=== PATIENT | male | born 1950 | race Caucasian/White ===

== ENCOUNTER 2017-11-24 13:27 | Inpatient (IN) | payer MEDICARE ==
--- NOTE | 2017-11-24 16:34 | RAD ---
HISTORY: Ataxia COMPARISONS: CT dated May 09, 2017 VIEWS: 1: frontal portable view of the chest at 4:10 PM FINDINGS: LINES AND TUBES: None. CARDIOMEDIASTINAL SILHOUETTE: The cardiomediastinal silhouette is normal for portable technique. PLEURA: The costophrenic angles are sharp. No pleural abnormalities are noted. LUNG PARENCHYMA: There is confluent alveolar opacification the left perihilar lung. There is hyperinflation. ABDOMEN: The upper abdomen is clear. There is no subphrenic gas. BONES AND SOFT TISSUES: No bone or soft tissue abnormalities are noted. IMPRESSION: LEFT PERIHILAR CONSOLIDATION. RECOMMEND FOLLOW-UP UNTIL RESOLUTION TO EXCLUDE UNDERLYING PULMONARY PARENCHYMAL PATHOLOGY.
--- NOTE | 2017-11-24 16:37 | RAD ---
HISTORY: Ataxia COMPARISONS: None TECHNIQUE: Multiple contiguous axial CT scans were obtained of the head without intravenous contrast. FINDINGS: HEMORRHAGE/INFARCT: There is no hemorrhage or acute infarct. MASSES/SHIFT: There is no mass or shift. EXTRA-AXIAL SPACES: There are no extra-axial fluid collections. SULCI AND VENTRICLES: The sulci and ventricles are normal in size and position for the patient's stated age. CEREBRUM: There are no focal parenchymal abnormalities. BRAINSTEM: There are no focal parenchymal abnormalities. CEREBELLUM: There are no focal parenchymal abnormalities. VESSELS: The vessels are grossly normal. PARANASAL SINUSES: The paranasal sinuses are clear. ORBITS: The orbits are unremarkable. BONES AND SOFT TISSUE: No bone or soft tissue abnormalities are noted. OTHER: None IMPRESSION: NO ACUTE INTRACRANIAL PATHOLOGY.
[2017-11-24 17:13] LABS: ABS Basophils 0 10^3/ul (0-0.2); ABS Eosinophils 0 10^3/ul (0-0.6); ABS Lymphocytes 2.6 10^3/ul (1.0-4.8); ABS Monocytes 0.8 10^3/ul (0-0.8); ABS Neutrophils 7.5 10^3/ul (1.5-7.7); ABS Nucleated RBC 0 10^3/ul; Eosinophil % 0.3 % (0-6); Hematocrit 43 % (42-52); Hemoglobin 14.9 g/dl (14.0-18.0); Lymphocyte % 23.6 % (25-47); Mean Corpuscular HGB Conc 34 g/dl (31-36); Mean Corpuscular Hemoglobin 33 pg (27-31); Mean Corpuscular Volume 95 fL (80-94); Mean Platelet Volume 10 um3 (7.4-10.4); Nucleated Red Blood Cells % 0; Platelet Count 226 10^3/ul (150-450); Red Blood Count 4.55 10^6/ul (4.0-5.4); Red Cell Distribution Width 13 % (10.5-15); White Blood Count 10.9 10^3/ul (3.5-10.8)
[2017-11-24 17:26] LABS: EGFR Non-African American 60.4 (>60)
[2017-11-24 17:37] LABS: INR 1.03 (0.77-1.02)
[2017-11-24] MEDS ORDERED: Thiamine IV* 100 MG/ML 2 ML VIAL IM ONE (19:21)
[2017-11-24] MEDS ORDERED: Cyanocobalamin INJ * 1,000 MCG/ML VIAL 1 ML VIAL IM ONE (19:21)
[2017-11-24] MEDS ORDERED: LORazepam INJ* 2 MG/ML 1 ML VIAL IV ONE (20:16)
[2017-11-24] MEDS ORDERED: CMCS:Melatonin (NF) 3 MG TAB PO PRN (23:15)
[2017-11-24] MEDS ORDERED: Mouth Piece, Nicotine* 1 EACH CARTRIDGE INH PRN (23:15)
[2017-11-24] MEDS ORDERED: Nicotine Inhaler* 10 MG AMP INH PRN (23:15)
[2017-11-24] MEDS ORDERED: Albuterol 2.5 MG/3 ML NEB.SOL* (0.083%) INH PRN (23:15)
--- NOTE | 2017-11-25 00:16 | CONS ---
NEUROLOGY CONSULTATION: DATE OF CONSULT: 11/24/17 LOCATION: He is in the emergency room bed 15 to be admitted. REFERRING PROVIDER: Miguel Sultana MD PRIMARY CARE PROVIDER: Hector Mills MD CHIEF COMPLAINT: Weakness. HISTORY OF PRESENT ILLNESS: David Rowe is a 67-year-old man who said that about , he had difficulty walking. He is not a very good historian with poor attention and concentration, and he may have had problems with numbness or difficulty walking prior to that, but there was a pretty abrupt change this past week. He found that by he was using 2 canes to walk. Prior to that, he may have had some numbness in his legs and feet, but he did not feel that his walking was much impaired if at all. He has; however, been getting weak and has lost over 35 pounds in the last 6 months. He says he had an extensive evaluation, but there is not a lot in our EMR. He did have a CT of the abdomen and pelvis on 09/15/17, which did not reveal anything revealing. There was some atheromatous disease and mild ectasia of the infrarenal abdominal aorta. He had a low dose lung CT on 05/09/17 interpreted as nodules with very low likelihood of becoming a clinically active cancer due to size and lack of growth. Apparently, this was an annual screening study. He had a CBC in the records from 06/26/17 notable for normal white blood cell count, normal hemoglobin at 15.5, platelet count 211,000. MCV was elevated at 98 at that point in time. He has not noticed any numbness or weakness in his arms. In addressing his somewhat inconsistent difficulty giving a history, his daughter admits that he has not been as sharp mentally as he has been. His is with him, but she has not lived with him for quite a while, but she notes he has declined and losing a lot of weight, but he used to be very intelligent and sharp and that that has changed. He denies double vision. He has sacral pain, but denies any other back pain. He reports chronic abdominal problems, which he attributes to diverticular disease, although that is not established in the records that I have available. He says he used to be very careful of what he eats or he starts regurgitating. He makes reference to having to "clean himself from below." He does not use enemas. His said he has become a recluse because of his bowel concerns and rarely goes out. He generally avoids medical care. MEDICATIONS: He does not take any medications at home other than low dose aspirin. ALLERGIES: He does not have any drug allergies. SOCIAL HISTORY: He is a heavy smoker and has been smoking for many decades. He is an alcoholic in remission and has not had alcohol in about 12 to 13 years. ROS: Weight loss as noted above. When asked about difficulty breathing, he says he just has difficulty when he is eating with a sense of pressure and regurgitation in his chest. He denies any history of heart problems. He has not had any faints or falls. There is no history of seizures, head trauma, or stroke. No history of endocrine, rheumatologic, psychiatric disease although his daughter says he is depressed. PHYSICAL EXAMINATION: On examination, he is somewhat cachectic looking gentleman with temporalis wasting. He has a non-painful rubbery nodule in the left lower paravertebral level and one of the left to the umbilicus. Lungs revealed rhonchorous sounds in the left base. Neck is supple. Carotid pulses are intact and there are no cervical bruits. Heart is in an irregular rhythm and is in atrial fibrillation on the monitor at a rate of about 130 to 140. Temperature 97.7 orally, blood pressure 110/80. Skin is warm and dry. He has tobacco stains on his fingers and onchonychia in his feet. Neurologically, pupils react equally from 3 to 2 mm symmetrically. Visual baxter are full to confrontation. Funduscopic exam reveals sharp discs bilaterally. There is no ptosis. Facial musculature is intact and symmetric. Facial sensation to pin and light touch is symmetric. Hearing is intact and neck strength seems normal. Motor exam reveals mild weakness of the left deltoid in the 4+ range. He has otherwise normal strength in the upper extremities proximally and distally. There is no spasticity in the arms. In the lower extremities, there is a slight increase in tone at both knees. He has barely antigravity strength of hip flexors bilaterally. He does have quadriceps strength bilaterally in the grade 4 range. He has mild ankle dorsiflexor weakness, worse in the right than the left. Sensory exam is normal for absent vibratory sense in the toes and ankles. He has diminished vibration all the way to the knees. Proprioception is absent in the great toes bilaterally. Vibration is a little bit better in the left leg than the right. There is diminished pin discrimination at least to the hips and there seems to be at sensory level in the intrascapular area bilaterally at about T3. Light touch is present in the fingers, but absent in the feet. Reflexes are present in the upper extremities and brisker in the right arm than the left. He has Og's reflexes in both fingers. He has very brisk knee reflexes, more in the right than the left. He has trace right ankle reflex and absent left ankle reflex. Plantar responses are extensor bilaterally. Finger- to-nose maneuver is normal bilaterally. He is awake and alert, but has poor attention and concentration. Language is fluent, but he loses his train of thought. Memory seems somewhat compromised, but he is able to provide a reasonable history. DIAGNOSTIC STUDIES/LAB DATA: Laboratory data includes a chest x-ray at this admission interpreted as showing left perihilar consolidation. EKG shows atrial fibrillation. Brain CT is reviewed and shows some atrophy, but is otherwise a normal brain CT. I reviewed the images and I agree. Other imaging from earlier in the year as described above. Other laboratory data notable for a CBC with a borderline elevated white blood cell count 10.9, elevated MCV at 95, platelet count normal at 226,000. Coag is notable for borderline elevated INR at 1.03. Chemistry is notable for an elevated carbon dioxide at 33, BUN 34, creatinine 1.2. Glucose, calcium, and magnesium are within normal limits. Liver enzymes and alkaline phosphatase are within normal limits. BNP is elevated at 525 and total protein is low at 6.3. TSH normal at 1.92. IMPRESSION: Impression is that of a possible spinal cord compression in a patient who has lost some amount of weight and is a chronic smoker, worrisome for a metastatic spinal cord compression. I think that the first order of business is to obtain an MRI of the thoracic and cervical spine with and without contrast if his renal function is adequate to handle it. Recommended adding a vitamin B12 level and thiamine level to his blood work and giving him 100 mg of thiamine IM and 1000 mcg of vitamin B12. He is in atrial fibrillation and Dr. Sultana will be addressing that aspect of his illness. There is no evidence currently of a stroke either by history or physical. In addition to spinal cord features of his exam, he also has features suggestive of a peripheral neuropathy and I have added a serum protein electrophoresis, Lyme screen. Further recommendations depend upon his imaging and other diagnostic studies. I have discussed my impression with Mr. Rowe, his ex-, and his daughter and that I believe he is having problems with the spinal cord and it may be metabolic or nutritional, but could be structural and hence the recommendations described above. TIME SPENT: Over 60 minutes was spent in direct ER care and discussion of the management of the patient with the healthcare team. [id number]/CPS #: [id number] MTDD
[2017-11-25] MEDS: NS 0.9% 1000 ML* 1,000 ML IV SCH ×3 (01:09→21:41)
[2017-11-25] MEDS ORDERED: Diltiazem DRIP* 100 MG/100 ML ADDV.BAG IVPB ONE (03:36)
[2017-11-25] MEDS ORDERED: Diltiazem IV* 5 MG/ML 5 ML VIAL (for loading dose/IV Push) (25 MG) IV SLOW PU ONE (03:36)
[2017-11-25] MEDS ORDERED: Diltiazem IV* 5 MG/ML 5 ML VIAL (for loading dose/IV Push) (25 MG) ONE (03:44)
[2017-11-25 04:15] LABS: ABS Basophils 0 10^3/ul (0-0.2); ABS Eosinophils 0 10^3/ul (0-0.6); ABS Lymphocytes 1.9 10^3/ul (1.0-4.8); ABS Monocytes 0.7 10^3/ul (0-0.8); ABS Neutrophils 9.3 10^3/ul (1.5-7.7); ABS Nucleated RBC 0 10^3/ul; Eosinophil % 0.3 % (0-6); Hematocrit 41 % (42-52); Hemoglobin 13.9 g/dl (14.0-18.0); Lymphocyte % 15.9 % (25-47); Mean Corpuscular HGB Conc 34 g/dl (31-36); Mean Corpuscular Hemoglobin 32 pg (27-31); Mean Corpuscular Volume 94 fL (80-94); Mean Platelet Volume 10 um3 (7.4-10.4); Nucleated Red Blood Cells % 0; Platelet Count 213 10^3/ul (150-450); Red Blood Count 4.34 10^6/ul (4.0-5.4); Red Cell Distribution Width 13 % (10.5-15)
[2017-11-25 04:26] LABS: EGFR Non-African American 68.2 (>60)
[2017-11-25] MEDS ORDERED: Diltiazem IV VIAL* 125 MG in NS 0.9% 100 ML* 100 ML IV ONE (04:30)
[2017-11-25] MEDS: Omeprazole CAP* 20 MG PO SCH (05:27)
[2017-11-25 05:56] LABS: Urine Appearance Clear; Urine Blood Negative (Negative); Urine Color Yellow; Urine Ketones Trace (Negative); Urine Protein Negative (Negative); Urine Specific Gravity 1.014 (1.010-1.030); Urine Urobilinogen Negative (Negative)
[2017-11-25] MEDS ORDERED: Heparin VIAL(*) 5000 UNITS/ML VIAL (FIVE THOUSAND) SUBCUT SCH (06:00)
[2017-11-25] MEDS: Aspirin EC Low Dose* 81 MG TAB.EC PO SCH (08:18)
[2017-11-25] MEDS: Docusate CAP* 100 MG PO SCH ×2 (08:18→21:37)
[2017-11-25] MEDS: Mometasone/Formoter 200/5 MDI INH SCH ×2 (08:42→19:41)
--- NOTE | 2017-11-25 08:54 | HP ---
H&P (Free Text) History and Physical: PCP: Faisal Mills MD Date/Time: 11/24/2017 2310 CC: BLE weakness HPI: Mr Rowe is a 67YO male HX emphysema currently smoking who reports awakening Friday AM without feeling in his BLE, L from hip to toes and R from knee to toes in a stocking distribution. He also reports recent development of a tender nodule in his epigastrum & low back along with a 30# weight loss over the past month. He has had chronic cough and mild SOB for the past year, but denies F/C, sweats, N/V, diarrhea, black or bloody stools, hemoptysis, or other issues. Susan Zaragoza MD neurology consulted in ED and held high suspicion of neoplastic process with cervical spine metastasis. 2 attempts to perform cervical MRI were unsuccessful 2nd patient intolerance. Plan to admit for Dr Zaragoza to arrange MRI under anesthesia in AM. CXR with L haley- hilar infiltrate ? mass and elevated CEA. PMedHx emphysema diverticulosis HX Lyme disease tobacco use disorder Ambulatory Orders Aspirin EC Low Dose* [Ecotrin EC Low Dose 81 MG*] 81 mg PO QAM 11/24/17 Allergies No Known Allergies Allergy (Verified 11/24/17 15:38) PSurgHx vocal polyp excision SocHx: 1PPD cigarettes, 13 years sober, denies recreational drugs; , lives alone; full code status FamHx: Mother: CHF, HTN; Father: CAD/CVA; sister: lung CA ROS: as above, otherwise reviewed and all were negative vitals: Vital Signs Temp 36.4 C 11/25/17 07:50 Pulse 156 11/25/17 03:32 Resp 18 11/25/17 03:32 BP 136/94 11/25/17 07:41 Pulse Ox 96 11/25/17 03:32 Intake & Output 11/24/17 11/24/17 11/25/17 11:59 23:59 11:59 Intake Total 0 Output Total 500 Balance -500 Weight 65.771 kg 58.786 kg Intake: Oral 0 Output: Urine 500 Other: # Voids 1 Constitutional: NAD, normally developed, thin white male HEENM: atraumatic; sclera/conjunctiva: anicteric/clear; hearing: clinically intact; oropharynx: clear, mucosa moist Neck: soft tissue: no nuchal rigidity; thyroid: non-tender Pulmonary: clear to auscultation bilaterally, good aeration, no accessory muscle use CV: RR/RR, normal S1S2, no carotid bruit, no jugular venous distention, 2+ B DP/ PT, no edema Abdominal: soft, non-distended, non-tender, no rebound/guarding/rigidity, normoactive bowel sounds, no hepatosplenomegaly or masses, no costovertebral angle tenderness Musculoskeletal: general: grossly intact Neurological: deferred to Susan Zaragoza MD neurology who evaluated patient in ED Integumental: mobile firm subcutaneous nodule in epigastrum & lumbar spine Psychiatric orientation: AA&O to PPS affect: calm mood: cooperative eye contact: fair content: reliable responses: timely insight: fair Testing: Lab Results 11/24/17 11/24/17 11/24/17 Range/Units 16:42 16:42 16:42 WBC 10.9 H (3.5-10.8) 10^3/ul RBC 4.55 (4.0-5.4) 10^6/ul Hgb 14.9 (14.0-18.0) g/dl Hct 43 (42-52) % MCV 95 H (80-94) fL MCH 33 H (27-31) pg MCHC 34 (31-36) g/dl RDW 13 (10.5-15) % Plt Count 226 (150-450) 10^3/ul MPV 10 (7.4-10.4) um3 Neut % (Auto) 68.7 (38-83) % Lymph % (Auto) 23.6 L (25-47) % [place] % (Auto) 7.1 (1-9) % Eos % (Auto) 0.3 (0-6) % Baso % (Auto) 0.3 (0-2) % Absolute Neuts (auto) 7.5 (1.5-7.7) 10^3/ul Absolute Lymphs (auto) 2.6 (1.0-4.8) 10^3/ul Absolute Monos (auto) 0.8 (0-0.8) 10^3/ul Absolute Eos (auto) 0 (0-0.6) 10^3/ul Absolute Basos (auto) 0 (0-0.2) 10^3/ul Absolute Nucleated RBC 0 10^3/ul Nucleated RBC % 0 ESR 7 (0-40) mm/Hr INR (Anticoag Therapy) 1.03 H (0.77-1.02) APTT 29.9 (26.0-36.3) seconds Sodium 134 (133-145) mmol/L Potassium 4.0 (3.5-5.0) mmol/L Chloride 96 L (101-111) mmol/L Carbon Dioxide 33 H (22-32) mmol/L Anion Gap 5 (2-11) mmol/L BUN 34 H (6-24) mg/dL Creatinine 1.20 H (0.67-1.17) mg/dL Est GFR ( Amer) 77.7 (>60) Est GFR (Non-Af Amer) 60.4 (>60) BUN/Creatinine Ratio 28.3 H (8-20) Glucose 88 (70-100) mg/dL Lactic Acid (0.5-2.0) mmol/L Calcium 8.8 (8.6-10.3) mg/dL Magnesium 2.5 (1.9-2.7) mg/dL Total Bilirubin 0.60 (0.2-1.0) mg/dL AST 39 (13-39) U/L ALT 38 (7-52) U/L Alkaline Phosphatase 79 (34-104) U/L Troponin I 0.03 (<0.04) ng/mL B-Natriuretic Peptide ( - 100) pg/mL Total Protein 6.3 L (6.4-8.9) g/dL Albumin 3.6 (3.2-5.2) g/dL Globulin 2.7 (2-4) g/dL Albumin/Globulin Ratio 1.3 (1-3) Carcinoembryonic Ag (0.1-5.0) ng/mL Vitamin B12 382 (180-914) pg/mL TSH 1.92 (0.34-5.60) mcIU/mL Urine Color Urine Appearance Urine pH (5-9) Ur Specific [place] (1.010-1.030) Urine Protein (Negative) Urine Ketones (Negative) Urine Blood (Negative) Urine Nitrate (Negative) Urine Bilirubin (Negative) Urine Urobilinogen (Negative) Ur Leukocyte Esterase (Negative) Urine Glucose (Negative) 0111/24/17 11/24/17 Range/Units 16:42 16:42 19:40 WBC (3.5-10.8) 10^3/ul RBC (4.0-5.4) 10^6/ul Hgb (14.0-18.0) g/dl Hct (42-52) % MCV (80-94) fL MCH (27-31) pg MCHC (31-36) g/dl RDW (10.5-15) % Plt Count (150-450) 10^3/ul MPV (7.4-10.4) um3 Neut % (Auto) (38-83) % Lymph % (Auto) (25-47) % [place] % (Auto) (1-9) % Eos % (Auto) (0-6) % Baso % (Auto) (0-2) % Absolute Neuts (auto) (1.5-7.7) 10^3/ul Absolute Lymphs (auto) (1.0-4.8) 10^3/ul Absolute Monos (auto) (0-0.8) 10^3/ul Absolute Eos (auto) (0-0.6) 10^3/ul Absolute Basos (auto) (0-0.2) 10^3/ul Absolute Nucleated RBC 10^3/ul Nucleated RBC % ESR (0-40) mm/Hr INR (Anticoag Therapy) (0.77-1.02) APTT (26.0-36.3) seconds Sodium (133-145) mmol/L Potassium (3.5-5.0) mmol/L Chloride (101-111) mmol/L Carbon Dioxide (22-32) mmol/L Anion Gap (2-11) mmol/L BUN (6-24) mg/dL Creatinine (0.67-1.17) mg/dL Est GFR ( Amer) (>60) Est GFR (Non-Af Amer) (>60) BUN/Creatinine Ratio (8-20) Glucose (70-100) mg/dL Lactic Acid 2.0 (0.5-2.0) mmol/L Calcium (8.6-10.3) mg/dL Magnesium (1.9-2.7) mg/dL Total Bilirubin (0.2-1.0) mg/dL AST (13-39) U/L ALT (7-52) U/L Alkaline Phosphatase (34-104) U/L Troponin I (<0.04) ng/mL B-Natriuretic Peptide 525 H ( - 100) pg/mL Total Protein (6.4-8.9) g/dL Albumin (3.2-5.2) g/dL Globulin (2-4) g/dL Albumin/Globulin Ratio (1-3) Carcinoembryonic Ag 22.5 H (0.1-5.0) ng/mL Vitamin B12 (180-914) pg/mL TSH (0.34-5.60) mcIU/mL Urine Color Urine Appearance Urine pH (5-9) Ur Specific [place] (1.010-1.030) Urine Protein (Negative) Urine Ketones (Negative) Urine Blood (Negative) Urine Nitrate (Negative) Urine Bilirubin (Negative) Urine Urobilinogen (Negative) Ur Leukocyte Esterase (Negative) Urine Glucose (Negative) 11/25/17 11/25/17 11/25/17 Range/Units 04:00 04:00 05:34 WBC 12.0 H (3.5-10.8) 10^3/ul RBC 4.34 (4.0-5.4) 10^6/ul Hgb 13.9 L (14.0-18.0) g/dl Hct 41 L (42-52) % MCV 94 (80-94) fL MCH 32 H (27-31) pg MCHC 34 (31-36) g/dl RDW 13 (10.5-15) % Plt Count 213 (150-450) 10^3/ul MPV 10 (7.4-10.4) um3 Neut % (Auto) 78.0 (38-83) % Lymph % (Auto) 15.9 L (25-47) % [place] % (Auto) 5.5 (1-9) % Eos % (Auto) 0.3 (0-6) % Baso % (Auto) 0.3 (0-2) % Absolute Neuts (auto) 9.3 H (1.5-7.7) 10^3/ul Absolute Lymphs (auto) 1.9 (1.0-4.8) 10^3/ul Absolute Monos (auto) 0.7 (0-0.8) 10^3/ul Absolute Eos (auto) 0 (0-0.6) 10^3/ul Absolute Basos (auto) 0 (0-0.2) 10^3/ul Absolute Nucleated RBC 0 10^3/ul Nucleated RBC % 0 ESR (0-40) mm/Hr INR (Anticoag Therapy) (0.77-1.02) APTT (26.0-36.3) seconds Sodium 131 L (133-145) mmol/L Potassium 3.7 (3.5-5.0) mmol/L Chloride 97 L (101-111) mmol/L Carbon Dioxide 25 (22-32) mmol/L Anion Gap 9 (2-11) mmol/L BUN 37 H (6-24) mg/dL Creatinine 1.08 (0.67-1.17) mg/dL Est GFR ( Amer) 87.7 (>60) Est GFR (Non-Af Amer) 68.2 (>60) BUN/Creatinine Ratio 34.3 H (8-20) Glucose 110 H (70-100) mg/dL Lactic Acid (0.5-2.0) mmol/L Calcium 8.7 (8.6-10.3) mg/dL Magnesium (1.9-2.7) mg/dL Total Bilirubin (0.2-1.0) mg/dL AST (13-39) U/L ALT (7-52) U/L Alkaline Phosphatase (34-104) U/L Troponin I (<0.04) ng/mL B-Natriuretic Peptide ( - 100) pg/mL Total Protein (6.4-8.9) g/dL Albumin (3.2-5.2) g/dL Globulin (2-4) g/dL Albumin/Globulin Ratio (1-3) Carcinoembryonic Ag (0.1-5.0) ng/mL Vitamin B12 (180-914) pg/mL TSH (0.34-5.60) mcIU/mL Urine Color Yellow Urine Appearance Clear Urine pH 7.0 (5-9) Ur Specific [place] 1.014 (1.010-1.030) Urine Protein Negative (Negative) Urine Ketones Trace H (Negative) Urine Blood Negative (Negative) Urine Nitrate Negative (Negative) Urine Bilirubin Negative (Negative) Urine Urobilinogen Negative (Negative) Ur Leukocyte Esterase Negative (Negative) Urine Glucose Negative (Negative) ECG, personally reviewed: AFIB RVR rate 125, no ischemia, biphasic T-waves lateral leads CXR, personally reviewed: IMPRESSION: LEFT PERIHILAR CONSOLIDATION. RECOMMEND FOLLOW-UP UNTIL RESOLUTION TO EXCLUDE UNDERLYING PULMONARY PARENCHYMAL PATHOLOGY. CT brain WO, personally reviewed: IMPRESSION: NO ACUTE INTRACRANIAL PATHOLOGY. Impression: 67M presenting with sudden onset BLE weakness & L perihilar pneumonia ? mass & elevated CEA suspicious for neoplastic process w/ post- obstructive pneumonia and cervical metastasis DIAGNOSIS & PLAN Primary post-obstructive pneumonia with suspected cervical metastasis : IV piperacillin/tazobactam : IVFs : Susan Zaragoza MD neurology consulted, will follow : supplemental oxygen : blood & sputum CXs : supportive care Secondary emphysema : albuterol nebs : mometasone/formoterol Admission Rational: inpatient for cancer work up with potential spinal metastasis; inappropriate for outpatient setting DVTp: SCDs & heparin Code Status: full HCP: daughter
[2017-11-25] MEDS ORDERED: Piperacillin/Tazobac ADVAN(*) 3.375 GM in NS 0.9% 100 ML* 100 ML IVPB SCH (10:00)
[2017-11-25] MEDS ORDERED: Potassium Chlor TAB* 20 MEQ TAB.ER PO ONE (10:06)
[2017-11-25] MEDS ORDERED: Metoprolol Tartrate IV* 1 MG/ML 5 ML VIAL IV ONE (10:06)
[2017-11-25] MEDS: Piperacillin/Tazobactam 13.5 GM IV 24 hour continuous infusion IVPB SCH ×2 (10:47)
[2017-11-25] MEDS: Enoxaparin(*) 60 MG/0.6 ML SYR SUBCUT SCH ×2 (12:57→23:35)
[2017-11-25] MEDS ORDERED: Dexamethasone IV* 8 MG in NS 0.9% 50 ML* 50 ML IVPB SCH (15:00)
[2017-11-25] MEDS ORDERED: Iohexol 300* (CONTRAST) 10 ML SDV IV ONE (15:25)
[2017-11-25] MEDS: Dexamethasone IV* 4 MG/ML 1 ML (4 MG) IV SLOW PU SCH ×2 (16:39→21:38)
--- NOTE | 2017-11-25 17:03 | PN ---
Subjective Date of Service: 11/25/17 Interval History: Seen multiple times throughout the day seen in conjunction with ex- at bedside Reports he has difficulty lying flat which has prevented him from completing MRI denying pain Objective Active Medications: Acetaminophen (Tylenol Tab*) 650 mg PO Q6H PRN PRN Reason: FEVER/PAIN Albuterol (Ventolin 2.5 Mg/3 Ml Neb.Dea*) 2.5 mg INH Q2H PRN PRN Reason: SOB/WHEEZING Aspirin (Aspirin Ec Low Dose*) 81 mg PO QAM [facility] Last Admin: 11/25/17 08:18 Dose: 81 mg Device (Nicotine Mouth Piece*) 1 each INH .USE WITH NICOTROL PRN PRN Reason: CRAVING Dexamethasone Sodium Phosphate (Decadron Iv*) 8 mg IV SLOW PU Q6H [facility] Last Admin: 11/25/17 16:39 Dose: 8 mg Docusate Sodium (Colace Cap*) 200 mg PO BID [facility] Last Admin: 11/25/17 08:18 Dose: 200 mg Enoxaparin Sodium (Lovenox(*)) 60 mg SUBCUT Q12H [facility] Last Admin: 11/25/17 12:57 Dose: 60 mg Sodium Chloride (Ns 0.9% 1000 Ml*) 1,000 mls @ 125 mls/hr IV PER RATE [facility] Last Admin: 11/25/17 12:54 Dose: 125 mls/hr Diltiazem HCl 125 mg/ Sodium (Chloride) 125 mls @ 5 mls/hr IV ONCE ONE PRN Reason: Protocol Stop: 11/26/17 05:29 Last Admin: 11/25/17 04:40 Dose: 5 mls/hr Piperacillin Sod/Tazobactam (Sod 13.5 gm/ Sodium Chloride) 500 mls @ 20.833 mls /hr IVPB Q24H [facility] Last Admin: 11/25/17 10:47 Dose: 20.833 mls/hr Melatonin (Melatonin (Nf)) 3 mg PO BEDTIME PRN; Protocol PRN Reason: Sleep Mometasone Furoate/Formoterol Fumar (Dulera 200/5 Mdi*) 2 puff INH BID [facility] Last Admin: 11/25/17 08:42 Dose: 2 puff Nicotine (Nicotine Inhaler*) 10 mg INH Q2H PRN PRN Reason: CRAVING Omeprazole (Prilosec Cap*) 20 mg PO DAILY@0600 SANTIAGO Last Admin: 11/25/17 05:27 Dose: 20 mg Ondansetron HCl (Zofran Inj*) 4 mg IV Q6H PRN PRN Reason: NAUSEA Vital Signs - 8 hr 11/25/17 11/25/17 11/25/17 09:11 09:41 10:11 Temperature Blood Pressure 106/79 113/81 116/92 (mmHg) 11/25/17 11/25/17 11/25/17 10:41 10:45 11:09 Temperature 98.8 F Blood Pressure 98/71 107/67 (mmHg) 11/25/17 11/25/17 11/25/17 11:12 11:26 11:41 Temperature Blood Pressure 122/86 110/75 118/83 (mmHg) 11/25/17 11/25/17 11/25/17 12:11 13:04 15:03 Temperature Blood Pressure 114/76 110/92 117/81 (mmHg) 11/25/17 15:15 Temperature 97.5 F Blood Pressure (mmHg) Oxygen Devices in Use Now: None Appearance: cachectic, temporal wasting, NAD Eyes: No Scleral Icterus, PERRLA Ears/Nose/Mouth/Throat: Clear Oropharnyx Neck: NL Appearance and Movements; NL JVP, Trachea Midline Respiratory: Symmetrical Chest Expansion and Respiratory Effort, Clear to Auscultation Cardiovascular: - - IRIR Abdominal: NL Sounds; No Tenderness; No Distention, No Hepatosplenomegaly Lymphatic: No Cervical Adenopathy Neurological: Alert and Oriented x 3, - - cn2-12 intact, 4-5 strength upper extremities, 2-3/5 hip flexors Result Diagrams: 11/25/17 04:00 11/25/17 04:00 Assess/Plan/Problems-Billing Assessment: 67 yo M p/w less than a week of increasing LE weakness and numbness found with left perihilar consolidation and concern for cervical/thoracic process - Patient Problems (1) Weakness Comment: concern for metastatic disease to cervical spine with resultant stenosis unable to tolerate MRI Plan on MRI C and T spine tomorrow evening under anesthesia Start dexamethasone 8 mg q6hrs (2) Tumor cells, uncertain whether benign or malignant Comment: Consolidation in lung without other evidence of inflammation or infection (nominal procalcitonin and ESR) Normal low dose CT in April but will repeat CT w/contrast of lung now to evaluate further CEA elevation of uncertain significance (3) Atrial fibrillation Comment: new onset lovenox BID cardizem gtt transition to PO tomorrow after NPO status lifted (4) DVT prophylaxis Comment: full dose lovenox for afib
--- NOTE | 2017-11-25 18:13 | RAD ---
INDICATION: Left hilar mass COMPARISON: Chest x-ray November 24, 2017 TECHNIQUE: Axial source images were obtained from the thoracic inlet to the hemidiaphragms. Coronal and sagittal reconstructed images were acquired. The visualized neck to include the thyroid appear normal. Chest wall: There are no acute abnormalities of the bony thorax or chest wall. There is no supraclavicular, infraclavicular, or axillary lymphadenopathy. Lungs : There are emphysematous changes. There is a more focal interstitial process in the left upper lobe emanating from the left suprahilar region. There are multiple pulmonary parenchymal masses consistent with satellite lesions. These measure up to 2.3 x 1.4 cm. There are no additional definitive discrete pulmonary parenchymal masses. There is atelectasis in the right lung base. Cardiomediastinal structures: The heart is normal in size. There is no pericardial effusion. There is no evidence of aortic aneurysm or dissection. The pulmonary vessels appear normal. There is a necrotic appearing mass with its epicenter in the aorticopulmonary window. The mass measures approximately 6.4 x 5.0 cm in dimension. There are additional small mediastinal lymph nodes. The esophagus appears normal. Pleura : There is a small right-sided effusion. Other: Limited views the upper abdomen show a water density lesion in the right hepatic lobe measuring 2.2 cm which may represent a cyst. There is a less defined lesion of similar size also in the right hepatic lobe slightly cephalad in location to the cystic-appearing lesion which is indeterminate on the early arterial phase enhanced images. IMPRESSION: 6 0.4 CM 0.4 CM MASS IN THE AORTICOPULMONARY WINDOW WITH EXTENSION INTO THE RIGHT SUPRAHILAR REGION. MULTIPLE SATELLITE LESIONS LEFT UPPER LOBE WITH POSSIBLE LYMPHANGITIC SPREAD OF TUMOR. POSSIBLE HEPATIC LESI
--- NOTE | 2017-11-25 20:33 | PN ---
NEUROLOGY FOLLOWUP NOTE: DATE OF FOLLOWUP: 11/25/17 LOCATION: He is in room 449. HOSPITALIST: Dr. Chaney. CHIEF COMPLAINT: Weakness. INTERVAL HISTORY: Since yesterday, Mr. Rowe feels no difference in his leg weakness. He is not ab le to bear weight. He still has no problems in his arms. He was not able to get an MRI in 2 [facility] tries. When he would lay down, he would feel like a phlegm was coming up through his throat and wa s having difficulty breathing. I spoke with Dr. Sultana and ELVIS Mora yesterday and we decided to try to get an MRI of his spine under anesthesia. Additional laboratory studies obtained since yesterday in the emergency room included repeat chemistr y profile notable for sodium down a little bit to 131, BUN up a little to 37, creatinine down to 1.08 . His vitamin B12 came back normal at 382 and TSH at 1.92. CBC is normal for a bump in his white bl ood cell count to 12.0, hemoglobin is stable. Platelet count normal at 213,000. He has an elevated carcinoembryonic antigen level at 22.5. MEDICATIONS: Include: 1. Aspirin 81 mg p.o. daily. 2. Albuterol inhaler. 3. Diltiazem, which was given once for his rapid atrial fibrillation 125 mg. 4. Lovenox 60 mg subcutaneous q.12 hours. 5. Nicotine inhaler. 6. Omeprazole 20 mg p.o. daily. 7. Zofran 4 mg IV q.6 hours as needed for nausea. 8. Piperacillin and tazobactam q.24 hours. PHYSICAL EXAMINATION: On exam, he remains afebrile. Blood pressures running about 110 to 120 systol ic/70 to 90 diastolic, heart rate is between 100 to 110, irregularly irregular. Lungs revealed some rhonchi in the right lung base. Neurologically, pupils react equally from 3.5 to 2 mm. Eye movements are normal and visual baxter ar e full. Facial musculature is symmetric. Palate and tongue are normal and speech is clear. Muscle tone and strength in the upper extremities is normal. In the lower extremities, he has grade 3 hip f lexor weakness bilaterally. He has grade 4 ankle dorsiflexor weakness bilaterally, a little worse on the left than the right. He continues with bilateral Babinski signs. He is hyperreflexic at the le ft knee and has absent ankle reflexes. He is alert and oriented to person, place, and time. Memory is intact and language is fluent. 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 Unfortunately, we have not been able to obtain adequate imaging, so I am going to go ahead and start dexamethasone today. The plan is for him to get an MRI with anesthesia standby tomorrow. I will discuss with Dr. Chaney possibly g etting a CT scan of the chest and possibly having Oncology see him as well. He may need bronchoscopy , but currently he is being treated for possible postobstructive pneumonia. I will continue to victoria cage [id number]/[facility] #: [id number]
[2017-11-26] MEDS ORDERED: Diltiazem IV VIAL* 125 MG in NS 0.9% 100 ML* 100 ML IV ONE (01:30)
[2017-11-26] MEDS: Dexamethasone IV* 4 MG/ML 1 ML (4 MG) IV SLOW PU SCH ×4 (04:12→21:41)
[2017-11-26] MEDS: Omeprazole CAP* 20 MG PO SCH ×2 (05:13→05:15)
[2017-11-26] MEDS: NS 0.9% 1000 ML* 1,000 ML IV SCH ×2 (07:01→21:44)
[2017-11-26] MEDS: Docusate CAP* 100 MG PO SCH ×2 (07:48→21:39)
[2017-11-26] MEDS: Aspirin EC Low Dose* 81 MG TAB.EC PO SCH (07:48)
[2017-11-26] MEDS ORDERED: Metoprolol Tartrate IV* 1 MG/ML 5 ML VIAL IV PRN (08:45)
[2017-11-26] MEDS: Mometasone/Formoter 200/5 MDI INH SCH ×2 (08:48→22:55)
[2017-11-26] MEDS ORDERED: Diltiazem IV* 5 MG/ML 5 ML VIAL (for loading dose/IV Push) (25 MG) IV SLOW PU ONE (09:10)
[2017-11-26] MEDS: Piperacillin/Tazobactam 13.5 GM IV 24 hour continuous infusion IVPB SCH ×2 (10:56)
[2017-11-26] MEDS ORDERED: KETAMINE HCL* 50 MG/ML 10 ML VIAL ONE (14:15)
[2017-11-26] MEDS ORDERED: Midazolam* 1 MG/ML 10 ML VIAL (10 MG) ONE (14:15)
--- NOTE | 2017-11-26 14:45 | PN ---
Subjective Date of Service: 11/26/17 Interval History: Events from overnight reviewed Rapid heart rate this AM, decreased to 30s with cardizem bolus but rapid return to tachycardia Pt has remained asymptomatic Feels leg strength is stable or maybe a little better Objective Active Medications: Acetaminophen (Tylenol Tab*) 650 mg PO Q6H PRN PRN Reason: FEVER/PAIN Albuterol (Ventolin 2.5 Mg/3 Ml Neb.Dea*) 2.5 mg INH Q2H PRN PRN Reason: SOB/WHEEZING Aspirin (Aspirin Ec Low Dose*) 81 mg PO QAM [facility] Last Admin: 11/26/17 07:48 Dose: 81 mg Device (Nicotine Mouth Piece*) 1 each INH .USE WITH NICOTROL PRN PRN Reason: CRAVING Dexamethasone Sodium Phosphate (Decadron Iv*) 8 mg IV SLOW PU Q6H [facility] Last Admin: 11/26/17 10:50 Dose: 8 mg Docusate Sodium (Colace Cap*) 200 mg PO BID [facility] Last Admin: 11/26/17 07:48 Dose: 200 mg Enoxaparin Sodium (Lovenox(*)) 60 mg SUBCUT Q12H [facility] Last Admin: 11/25/17 23:35 Dose: 60 mg Sodium Chloride (Ns 0.9% 1000 Ml*) 1,000 mls @ 125 mls/hr IV PER RATE [facility] Last Admin: 11/26/17 07:01 Dose: 125 mls/hr Piperacillin Sod/Tazobactam (Sod 13.5 gm/ Sodium Chloride) 500 mls @ 20.833 mls /hr IVPB Q24H [facility] Last Admin: 11/26/17 10:56 Dose: 20.833 mls/hr Diltiazem HCl 125 mg/ Sodium (Chloride) 125 mls @ 5 mls/hr IV ONCE ONE PRN Reason: Protocol Stop: 11/27/17 02:29 Last Admin: 11/26/17 01:46 Dose: 5 mls/hr Melatonin (Melatonin (Nf)) 3 mg PO BEDTIME PRN; Protocol PRN Reason: Sleep Metoprolol Tartrate (Lopressor Iv*) 5 mg IV Q1H PRN PRN Reason: HR > 120; Last Admin: 11/26/17 08:58 Dose: 5 mg Mometasone Furoate/Formoterol Fumar (Dulera 200/5 Mdi*) 2 puff INH BID [facility] Last Admin: 11/26/17 08:48 Dose: 2 puff Nicotine (Nicotine Inhaler*) 10 mg INH Q2H PRN PRN Reason: CRAVING Omeprazole (Prilosec Cap*) 20 mg PO DAILY@0600 [facility] Last Admin: 11/26/17 05:15 Dose: Not Given Ondansetron HCl (Zofran Inj*) 4 mg IV Q6H PRN PRN Reason: NAUSEA Vital Signs - 8 hr 11/26/17 11/26/17 11/26/17 07:03 07:51 08:00 Temperature 97.8 F Pulse Rate Respiratory 20 16 Rate Blood Pressure 116/82 (mmHg) O2 Sat by Pulse Oximetry 11/26/17 11/26/17 11/26/17 08:52 08:56 09:03 Temperature Pulse Rate 90 Respiratory 16 Rate Blood Pressure 98/91 116/69 (mmHg) O2 Sat by Pulse 98 Oximetry 11/26/17 11/26/17 11/26/17 10:31 10:38 10:45 Temperature 98.2 F Pulse Rate 109 118 106 Respiratory 20 16 13 Rate Blood Pressure 117/81 117/81 106/68 (mmHg) O2 Sat by Pulse 95 95 98 Oximetry 11/26/17 11/26/17 11/26/17 10:47 10:48 11:00 Temperature Pulse Rate 112 103 96 Respiratory 21 20 14 Rate Blood Pressure 62/54 93/62 113/74 (mmHg) O2 Sat by Pulse 98 96 96 Oximetry 11/26/17 11/26/17 11/26/17 11:01 11:15 11:16 Temperature Pulse Rate 90 77 103 Respiratory 13 21 20 Rate Blood Pressure 116/79 (mmHg) O2 Sat by Pulse 97 94 96 Oximetry 11/26/17 11/26/17 11/26/17 11:30 11:31 11:45 Temperature Pulse Rate 115 98 125 Respiratory 18 23 14 Rate Blood Pressure 106/81 (mmHg) O2 Sat by Pulse 95 96 88 Oximetry 11/26/17 11/26/17 11/26/17 11:46 12:00 12:01 Temperature Pulse Rate 117 Respiratory 22 12 22 Rate Blood Pressure 132/110 105/80 (mmHg) O2 Sat by Pulse 97 Oximetry 11/26/17 11/26/17 11/26/17 12:15 12:16 12:30 Temperature Pulse Rate 107 109 122 Respiratory 24 21 14 Rate Blood Pressure 114/82 113/81 (mmHg) O2 Sat by Pulse 92 97 96 Oximetry 11/26/17 11/26/17 11/26/17 12:35 12:45 12:46 Temperature 98.5 F Pulse Rate 112 118 Respiratory 17 14 Rate Blood Pressure 105/73 (mmHg) O2 Sat by Pulse 96 97 Oximetry 11/26/17 11/26/17 11/26/17 13:00 13:01 13:15 Temperature Pulse Rate 174 152 130 Respiratory 12 13 23 Rate Blood Pressure 110/86 (mmHg) O2 Sat by Pulse 96 94 96 Oximetry 11/26/17 11/26/17 11/26/17 13:16 13:30 13:31 Temperature Pulse Rate 131 142 145 Respiratory 17 21 21 Rate Blood Pressure 117/74 109/76 (mmHg) O2 Sat by Pulse 95 97 94 Oximetry 11/26/17 11/26/17 11/26/17 13:45 13:46 14:00 Temperature Pulse Rate 83 116 115 Respiratory 19 25 17 Rate Blood Pressure 91/76 (mmHg) O2 Sat by Pulse 94 94 87 Oximetry 11/26/17 14:01 Temperature Pulse Rate 129 Respiratory 22 Rate Blood Pressure 120/77 (mmHg) O2 Sat by Pulse 95 Oximetry Oxygen Devices in Use Now: None Appearance: NAD, sitting up in bed, Eyes: No Scleral Icterus, PERRLA Ears/Nose/Mouth/Throat: Clear Oropharnyx, Mucous Membranes Moist Neck: NL Appearance and Movements; NL JVP, Trachea Midline Respiratory: Symmetrical Chest Expansion and Respiratory Effort Cardiovascular: - - tachy, regular Abdominal: NL Sounds; No Tenderness; No Distention, No Hepatosplenomegaly Lymphatic: No Cervical Adenopathy Neurological: Alert and Oriented x 3, - - cn2-12 intact antigravity strength in b/l LEs Result Diagrams: 11/25/17 04:00 11/25/17 04:00 Microbiology and Other Data: Microbiology 11/25/17 10:16 Aerobic Blood Culture - Preliminary Blood Venous No Growth Day 1 Anaerobic Blood Culture - Preliminary No Growth Day 1 Assess/Plan/Problems-Billing Assessment: 67 yo M p/w less than a week of increasing LE weakness and numbness found with left perihilar consolidation and concern for cervical/thoracic process - Patient Problems (1) Weakness Comment: concern for metastatic disease to cervical spine with resultant stenosis CT chest indicates a mass around T4 unable to tolerate MRI Plan on MRI C and T spine today evening under anesthesia Start dexamethasone 8 mg q6hrs (2) Tumor cells, uncertain whether benign or malignant Comment: Consolidation in lung without other evidence of inflammation or infection (nominal procalcitonin and ESR) Normal low dose CT in April CT chest yesterday with necrotic mass CEA elevation of uncertain significance Will need biopsy. Unclear best path for biopsy given COPD and location of mass. Consult to pulmonology made. (3) Atrial fibrillation Comment: new onset complicated aflutter RVR lovenox BID cardizem gtt in ICU NPO currently so no PO harlan blockade added (4) DVT prophylaxis Comment: full dose lovenox for afib
[2017-11-26] MEDS ORDERED: Digoxin IV* 0.5 MG/2 ML AMP (0.25 MG/ML) IV SLOW PU ONE ×2 (15:45→20:00)
[2017-11-26] MEDS: Enoxaparin(*) 60 MG/0.6 ML SYR SUBCUT SCH (17:27)
[2017-11-26] MEDS: Metoprolol Tartrate IV* 1 MG/ML 5 ML VIAL IV SCH ×2 (17:43→21:20)
--- NOTE | 2017-11-26 18:11 | ECHO ---
Patient: RACHEL HODGSON [facility] Rec#: [id number] : 1950 Date: 11/26/2017 Age: 67y Height: 177.8 cm / 70.0 in Weight: 59.42 kg / 131.0 lbs Sex: M BSA: 1.74 Room#: ICU 11 Admit Date#: 11/24/2016 Type: Inpatient Referring: Kedar Pope MD Reading: Kedar Pope MD Electronic Equipment Installer: Tresa Oh,RDCS,RDMS CC: Hector Mills MD Transthoracic Echocardiogram Indication: Aflutter BP: 118/96 HR: 125 Rhythm: A-Flutter Findings History: COPD, smoker, Lyme disease, lung mass Technical Comments: The study quality is good. Left Ventricle: The left ventricular size is mild to moderately dilated. There is no left ventricular hypertrophy. There is moderate to severely decreased left ventricular systolic function. The inferior wall is best preserved; moderate to severe hypokinesis elsewhere. The estimated ejection fraction is 25-30%. The assessment of diastolic function is non-diagnostic. Left Atrium: The left atrium is severely dilated. Right Ventricle: The right ventricular chamber size and systolic function are within normal limits. The right ventricle wall thickness is mildly increased. Right Atrium: The right atrial cavity size is severely dilated. A prominent chiari network is noted in the right atrium. Aortic Valve: The aortic valve leaflets are mildly thickened. There is moderate aortic regurgitation. There is no evidence of aortic stenosis. Mitral Valve: There is mitral annular calcification. The mitral valve leaflets are mildly thickened. There is mild to moderate mitral regurgitation. dual jets noted. There is no evidence of mitral stenosis. Tricuspid Valve: The tricuspid valve leaflets are normal. There is mild tricuspid regurgitation. There is evidence that pulmonary hypertension may be underestimated. Pulmonic Valve: The pulmonic valve appears normal. There is a trace pulmonic regurgitation. Pericardium: There is no significant pericardial effusion. Aorta: The ascending aorta is not well visualized. There is no dilatation of the aortic arch. There is moderate dilatation of the aortic root. Pulmonary Artery: The main pulmonary artery is not well visualized. Venous: The inferior vena cava is dilated. There is less than 50% respiratory change in the inferior vena cava dimension. Summary: There was not any prior study for comparison. Conclusions The left ventricular size is mild to moderately dilated. There is moderate to severely decreased left ventricular systolic function. The inferior wall is best preserved; moderate to severe hypokinesis elsewhere. The estimated ejection fraction is 25-30%. The right ventricle wall thickness is mildly increased. The right atrial cavity size is severely dilated. A prominent chiari network is noted in the right atrium. There is moderate aortic regurgitation. There is mild to moderate mitral regurgitation. dual jets noted. There is mild tricuspid regurgitation. There is evidence that pulmonary hypertension may be underestimated. There is moderate dilatation of the aortic root. Measurements Name Value Normal Range RVIDd (AP) 2D 1.9 cm (0.9 - 2.6) RAd ISD 4CH 6.1 cm (3.4 - 4.9) RA (A4C)W 6.4 cm (2.9 - 4.6) IVSd (2D) 1 cm (0.6 - 1) LVPWd (2D) 1 cm (0.6 - 1) LVIDd (2D) 5.9 cm (3.6 - 5.4) LVIDs (2D) 5.3 cm - LV FS (2D) 10 % (25 - 45) Aortic Annulus 2.3 cm (1.4 - 2.6) Ao root diameter (2D) 4.4 cm (2.1 - 3.5) Aortic arch 2.6 cm (1.8 - 3.4) LA dimension (AP) 2D 3.9 cm (2.3 - 3.8) LAd ISD 4CH 5.3 cm (2.9 - 5.3) LA ISD 4CH W 3.8 cm (2.5 - 4.5) Name Value Normal Range LA ESV SP 4CH (A/L) 38.4 ml - LA ESV SP 2CH (A/L) 173.13 ml - LA ESV BP (A/L) 98.23 ml - LA ESV BP (A/L) index 56 ml/m2 - LA ESV SP 4CH (MOD) 36.17 ml - LA ESV SP 2CH (MOD) 151.93 ml - Name Value Normal Range MV E-wave Vmax 0.6 m/sec - MV deceleration time 145 msec - LV lateral e' Vmax 0.03 m/sec - LV E:e' lateral ratio 20 ratio - Name Value Normal Range AV Vmax 1 m/sec - AV peak gradient 4 mmHg - LVOT Vmax 0.7 m/sec - LVOT peak gradient 2 mmHg - AR PHT 575.82 msec - AR peak gradient 77.95 mmHg - LEISA Vmax 0.4 m/sec - Name Value Normal Range TR Vmax 2 m/sec - TR peak gradient 16 mmHg - RAP 8 mmHg - RVSP 24 mmHg - IVC diameter 2.6 cm - Name Value Normal Range PV Vmax 0.5 m/sec - PV peak gradient 1 mmHg -
--- NOTE | 2017-11-26 18:35 | CONS ---
PULMONARY CONSULTATION REPORT: DATE OF CONSULT: 11/26/17 CONSULTATION REQUESTED BY: Dr. Jesus Chaney. REASON FOR CONSULT: Evaluation of abnormal CT chest. 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 The patient has chronic cough and mild dyspnea on exertion, which has been stable over the past year. The patient was seen by Neurology in emergency room, neoplastic process with cervical spine metastasis was suspected. The patient could not lie down for MRI due to worsening shortness of breath. The patient had chest x- ray performed in the ED, which was personally reviewed by me, which showed evidence of left perihilar fullness. The patient subsequently underwent CT scan of the chest, which was also personally reviewed by me and with the patient - the patient noted to have left perihilar mass with conglomerate of lymph nodes in left perivascular area. The patient also noted to have significant emphysematous changes bilaterally. The patient also noted to have multiple parenchymal masses on the left side. There is possible evidence of endobronchial lesion. The patient also with necrotic aortopulmonary lymph node. The patient also with small right- sided effusion. The patient also with cystic lesion measuring 2.2 cm in the right hepatic lobe. The patient denies fevers or chills, night sweats, nausea, vomiting, diarrhea, dark stools, hemoptysis, neck stiffness, recent trauma, recent travel. The patient is being treated for possible postobstructive pneumonia. He continues to have lower extremity weakness. PAST MEDICAL HISTORY: 1. Emphysema. 2. Diverticulosis. 3. Lyme disease. 4. Current smoking status. PAST SURGICAL HISTORY: Vocal polyp excision. MEDICATIONS AT HOME: Aspirin 81 mg. ALLERGIES: No known drug allergies. FAMILY HISTORY: History of CHF, hypertension in mother; coronary artery disease , CVA in father; lung cancer in sister. SOCIAL HISTORY: Roi-bdbk-igu-day smoker. Prior alcohol abuse, has remained sober for about 13 years. No recreational drug abuse. He lives alone at home. REVIEW OF SYSTEMS: All 14 systems reviewed and as per HPI. PHYSICAL EXAM: The patient in bed, in no apparent distress. Vital Signs: Temperature 98.5, tachycardic with heart rate of 126, respiratory rate 22, O2 sat 95% on O2 supplementation, blood pressure 120/77. HEENT: Pupils are equal and reactive to light, mucous membranes moist. Lungs: Diminished air entry bilaterally. No wheeze. Cardiovascular: Tachycardic, regular. Abdomen: Soft , nontender, nondistended. Bowel sounds present. Musculoskeletal: Normal range of motion, decreased strength in lower extremities. Neurologic: Alert, awake, and oriented x3, cranial nerves intact, decreased strength in lower extremities. Skin: No rash or bruises. DIAGNOSTIC STUDIES/LAB DATA: WBC count 12, hemoglobin 13.9, hematocrit 41, platelet count 213. Sodium 131, potassium 3.7, chloride is 97, bicarb of 25 improved from 33 on admission, BUN 37, creatinine 1.08. CRP 4.64. CEA elevated at 22.9. BNP elevated at 525. Lactic acid within normal limits. Blood cultures negative to date. IMPRESSION AND RECOMMENDATIONS: 67-year-old male, current smoker with significant smoking history, admitted with lower extremity weakness, found to have left perihilar mass, highly concerning for malignancy with postobstructive pneumonia. The patient with atrial fibrillation, new onset; has been tachycardic, on Cardizem drip in ICU; also started on Lovenox for new-onset atrial flutter/ atrial fibrillation. He is high risk for bronchoscopy. The patient to have MRI and CT spine. He was started on dexamethasone. Continue with bronchodilators and oxygen supplementation. Thank you for allowing me to participate in the care of your patient. Will follow up with you. [id number]/[facility] #: [id number] RICKIE
--- NOTE | 2017-11-26 20:23 | CONS ---
CC: Dr. Mills * CARDIOLOGY CONSULTATION: DATE OF CONSULT: 11/26/17 REASON FOR EVALUATION: Atrial arrhythmias. REQUESTING PHYSICIAN: Dr. Chaney. HISTORY OF PRESENT ILLNESS: This is a pleasant 67-year-old man who presented because of weakness; however, he says he has been losing weight and feeling poorly over many months. He said he has had phlegm for 2 years with nasal congestion. He has also had intermittent constipation over 6 months. He lost 35 pounds over the last 6 months. He was evaluated for Lyme disease which was negative in March as per the patient. He said that before , he was able to walk 3 to 5 miles with his dogs. He has not been able to walk long distances since then because of fatigue. He said last week, he was unable to stand due to leg weakness. He came to the emergency room and was found to be in atrial flutter with a rapid ventricular response as well as having left hilar consolidation on his chest x-ray on 11/24/17 at admission. He had a brain CT on 11/24/17, which revealed no acute intracranial pathology. He had a chest CT yesterday, which revealed a large necrotic appearing mass in the aortopulmonary window, additional mediastinal lymph nodes, small right-sided effusion. There are emphysematous changes and a more focal interstitial process in left upper lobe emanating from the left suprahilar region and multiple pulmonary and parenchymal masses consistent with satellite lesions that measure up to 2.3 x 1.4 cm. It was felt that there was a large mass with extension into the right suprahilar region, multiple satellite lesions in left upper lobe with possible lymphangitic spread of tumor, possible hepatic lesions. Today, he is being evaluated by Neurology and Pulmonology. This morning, he was noted to have an increase in his heart rate to the 160s and review of the EKG suggested atrial flutter with a rapid ventricular response. He has been treated with IV Lopressor and IV diltiazem. He denies any palpitations. He states he feels a little short of breath when he lies flat, but was able to lie flat at home before he came to the hospital. He reports constipation without any fevers, chills, or sweats. He does report his legs are weak, left greater than right. He was smoking 1-1/2 packs per day for 50 years until 2 days ago. He has a history of alcoholism, but stopped 13 years ago. He drinks 1 cup of coffee a day. PAST MEDICAL HISTORY: Includes Lyme disease treated in the 80s and 90s and a history of COPD. He also has a history of occupational exposure to chemicals. 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 PAST SURGICAL HISTORY: Includes vocal cord polyp removed. MEDICATIONS: At home was aspirin 81 mg a day. As an inpatient he is on: 1. Albuterol inhalers. 2. Aspirin 81 mg a day. 3. Diltiazem 5 mg an hour. 4. Colace 200 mg b.i.d. 5. Enoxaparin 60 mg subcu q.12. 6. Docusate 200 mg b.i.d. 7. Melatonin 3 mg at bedtime p.r.n. 8. Metoprolol 5 mg IV q.1 h. p.r.n. 9. Nicotine 10 mg inhaler q.2 h. p.r.n. 10. Omeprazole 20 mg a day. 11. Zofran 4 mg IV q.6 h. p.r.n. 12. Sodium chloride 125 mL an hour. FAMILY HISTORY: Includes a sister of lung cancer and a sister of overdose. SOCIAL HISTORY: He is and accompanied by his ex-. He has 2 children. REVIEW OF SYSTEMS: Review of systems x10 was negative except as above. PHYSICAL EXAMINATION: On physical exam, he is a well-developed, frail-appearing gentleman, in no apparent distress. Heart rate in the 120s, blood pressure 118/ 96, oxygen sat 93% on room air. No significant JVD. Carotids 2+ without bruits. No cervical lymphadenopathy or thyromegaly. Extraocular muscles intact. Sclerae anicteric. Cardiac Exam: S1, S2. Somewhat irregular and rapid with a 2/6 holosystolic murmur at the left lower sternal border. Chest: Decreased breath sounds. Prolonged expiratory phase, increased resonance to percussion. There is a 2 cm subcutaneous round lesion at the left lower posterior thorax and a 1 to 2 cm lesion in the left anterior chest inframammary area. Abdomen: Bowel sounds present, nontender. No hepatosplenomegaly. Femoral pulses intact with left femoral bruits. Distal pulses intact. Motor Strength: 4/5 in the upper extremities, somewhat reduced in the left lower extremity. Alert and oriented x3. DIAGNOSTIC STUDIES/LAB DATA: Labs include white count of 12, hematocrit of 41, and platelet count of 213,000. Sodium 131, potassium of 3.7, BUN of 37, creatinine of 1.08. BNP elevated at 5.4. Albumin low at 3.3. CEA of 22.5, elevated. Lyme disease negative. His EKG from 11/24/17 revealed what appeared to be atypical flutter with a rapid ventricular response, poor R wave progression and lateral T wave inversions. No old one for comparison. EKG from this morning at 7 a.m. revealed what appeared to be atrial flutter with a 2:[address] -T depressions, consider ischemia. IMPRESSION: Mr. Rowe has atrial flutter with elevated ventricular response in the setting of illness associated with wasting, cough, and pulmonary lesions raising the possibility of neoplastic process. There may be contiguous involvement of the pericardium which may be resulting in arrhythmias. I discussed the findings with him and his ex- as well as with Dr. Chaney and Dr. Hyde. For the time being, I would recommend the followin. I would suggest adding digoxin 0.25 mg IV to try to assist in rate control without excessively lowering his blood pressure. 2. Would decrease the diltiazem and consider adding a standing dose of beta- roni if tolerated from a bronchospastic standpoint. 3. I would obtain an echocardiogram. 4. I would try to maintain his potassium over 4. Further recommendations will depend on his clinical course. [id number]/[facility] #: [id number] addendum: Echo from 11.26.17 revealed moderate to severely decreased LV function. Possible tachycardia induced cardiomyopathy vs ischemic cm. MTDD
--- NOTE | 2017-11-26 20:48 | CONS ---
NEUROLOGY FOLLOWUP NOTE: DATE OF FOLLOWUP: 11/26/17. LOCATION: He is in ICU bed 11. HOSPITALIST: Dr. Chaney. CHIEF COMPLAINT: Leg weakness. INTERVAL HISTORY: Since yesterday, Mr. Rowe has developed tachycardia and then bradycardia. He was transferred to the ICU. He feels that his leg strength is about the same. He is scheduled for an MRI with conscious sedation in a short while. He is currently undergoing an echocardiogram. MEDICATIONS: Reviewed and he is on: 1. Dexamethasone 8 mg IV q.6 hours. 2. Aspirin 81 mg p.o. q. day. 3. Digoxin was given 0.25 mg IV once. 4. Diltiazem 125 mg given IV once. 5. Lovenox 60 mg subcutaneous q.12 hours. 6. Melatonin 3 mg at bedtime. 7. Nicotine inhaler. 8. Omeprazole 20 mg p.o. q. day. 9. Zofran 4 mg IV q.6 hours as needed. PHYSICAL EXAM: Mr. Rowe was not examined as he is undergoing an echocardiogram. IMPRESSION: Continues to be that of probable spinal cord compression, I suspect by epidural metastasis from lung cancer. Dr. Hyde has seen the patient and agree with Dr. Chaney's note. As anticipated, he will have a bronchoscopic biopsy during the end of the week. For now, he is on steroids and once we get his MRI done we will probably recommend a neurosurgical consultation and oncology consultation as well. TIME SPENT: Over 50 percent of this 25 minute followup was spent in direct face -to-face consultation. [id number]/[facility] #: [id number] RICKIE
[2017-11-27] MEDS: Metoprolol Tartrate IV* 1 MG/ML 5 ML VIAL IV SCH ×4 (01:13→13:24)
[2017-11-27] MEDS: Enoxaparin(*) 60 MG/0.6 ML SYR SUBCUT SCH ×2 (01:13→12:32)
[2017-11-27] MEDS: Dexamethasone IV* 4 MG/ML 1 ML (4 MG) IV SLOW PU SCH ×4 (04:17→21:46)
[2017-11-27 05:17] LABS: ABS Basophils 0 10^3/ul (0-0.2); ABS Eosinophils 0 10^3/ul (0-0.6); ABS Monocytes 0.4 10^3/ul (0-0.8); ABS Neutrophils 10.9 10^3/ul (1.5-7.7); ABS Nucleated RBC 0 10^3/ul; Eosinophil % 0 % (0-6); Hematocrit 36 % (42-52); Hemoglobin 12.3 g/dl (14.0-18.0); Lymphocyte % 8.4 % (25-47); Mean Corpuscular HGB Conc 34 g/dl (31-36); Mean Corpuscular Hemoglobin 32 pg (27-31); Mean Corpuscular Volume 96 fL (80-94); Mean Platelet Volume 10 um3 (7.4-10.4); Nucleated Red Blood Cells % 0; Platelet Count 191 10^3/ul (150-450); Red Blood Count 3.79 10^6/ul (4.0-5.4); Red Cell Distribution Width 13 % (10.5-15); White Blood Count 12.4 10^3/ul (3.5-10.8)
[2017-11-27] MEDS: NS 0.9% 1000 ML* 1,000 ML IV SCH ×2 (06:24→14:48)
[2017-11-27] MEDS: Omeprazole CAP* 20 MG PO SCH (06:24)
[2017-11-27] MEDS: Mometasone/Formoter 200/5 MDI INH SCH ×2 (07:21→20:30)
--- NOTE | 2017-11-27 07:57 | RAD ---
INDICATION: Trauma, lung mass. COMPARISON: There are no prior studies available for comparison. TECHNIQUE: Contiguous axial sections were obtained from the skull base through the T2 vertebra. Images were reconstructed in the sagittal and coronal planes. FINDINGS: The vertebra are in normal alignment. No prevertebral soft tissue swelling or fracture is seen. At the C3-C4 level there is posterior uncinate process spurring and mild hypertrophic changes within the facet joints. No significant spinal canal narrowing is present. There is mild to moderate bilateral neural foraminal narrowing. At the C4-C5 level there is mild posterior uncinate process spurring. No significant spinal canal or neural foraminal narrowing is seen. At the C5-C6 level there is mild posterior uncinate process spurring associated with a mild broad-based disc bulge. There are mild hypertrophic changes within the facet joints. No significant spinal canal narrowing is seen. There is mild neural foraminal narrowing on the left side. At the C6-C7 level there is mild posterior uncinate process spurring. No significant spinal canal or neural foraminal narrowing is seen. There is bilateral apical pleural-parenchymal scarring. IMPRESSION: 1. NO EVIDENCE FOR FRACTURE OR SUBLUXATION. 2. MILD TO MODERATE CERVICAL SPONDYLOSIS.
[2017-11-27] MEDS: Docusate CAP* 100 MG PO SCH ×2 (09:00→21:45)
[2017-11-27] MEDS: Aspirin EC Low Dose* 81 MG TAB.EC PO SCH (09:24)
[2017-11-27] MEDS ORDERED: Digoxin TAB* 0.125 MG PO ONE (11:27)
--- NOTE | 2017-11-27 12:45 | RAD ---
Indication: ICU patient with clinical concern for potential thoracic spine compression fracture. LEFT lung mass. Comparison: Visceral portion of thoracic CT from November 25, 2017. November 24, 2017 chest radiograph. Technique: Multiplanar bone algorithm reformatted images from the November 25, 2017 contrast-enhanced CT of the thorax. Report: Subtle mixed sclerotic and osteolytic lesion at the LEFT pedicle of the T7 vertebral body with suggestion of a nondisplaced coronal oriented pathologic fracture. Rarefaction of the superior and inferior cortex. Adjacent paravertebral/pleural mass reference the visceral portion of the CT exam measuring up to 3.7 cm AP by 2.7 cm transverse extending from the vertebral body medially and approximating the posterior margin of the descending aorta anteriorly. No compelling CT evidence for epidural tumor. No additional focal osseous lesions or fracture evident. Small dependent pleural effusions. Large LEFT hilar mass described in the thoracic CT report. Advanced emphysema. IMPRESSION: Contiguous with the LEFT paraspinal soft tissue mass there is mixed lytic and sclerotic metastasis at the LEFT pedicle of the T7 vertebral body with suggestion of associated grossly nondisplaced pathologic fracture. No compelling CT evidence for epidural tumor however MRI would be more sensitive in this regard. Results discussed with Dr. Rangel 11/27/2017 12:39 PM EST
[2017-11-27] MEDS ORDERED: Iohexol 300* (CONTRAST) 10 ML SDV IV ONE (14:35)
--- NOTE | 2017-11-27 17:22 | RAD ---
INDICATION: Lung mass. Evaluate for metastasis COMPARISON: CT chest November 25, 2017; CT urogram April 11, 2016 TECHNIQUE: Axial source images were obtained from the hemidiaphragms to the symphysis pubis following administration of oral and intravenous contrast. 80 mL Omnipaque 300 was utilized. Coronal and sagittal reconstructed images were acquired. Lung bases: There is mild bibasilar airspace disease most consistent with atelectasis and there are small bilateral pleural effusions. Liver: There is periportal edema. There is a low-density lesion in the posterior right hepatic lobe measuring 2.2 cm which is likely minimally complicated cyst. There are other indeterminate lesions with a 1.9 cm lesion in the posterior right hepatic lobe near the dome. This is unchanged as well. There is moderate periportal edema. Gallbladder: There are no calcified gallstones. There is no evidence of wall thickening or pericholecystic fluid. Spleen: No gross abnormalities. Pancreas: There is no focal pancreatic mass or ductal dilatation. Adrenal glands: There is no evidence of adrenal mass. Kidneys: The kidneys are normal in size and position. There are prompt nephrograms and there is prompt excretion bilaterally. There are no renal parenchymal masses. There is no evidence of nephrolithiasis. Adenopathy: There is no definitive discrete adenopathy but there is a paucity of fat planes and there is mesenteric edema which does lead to some limitation. Fluid collections: Mesenteric edema is noted above. There is fluid in the presacral space. Vessels: The IVC is distended. There are advanced atherosclerotic changes of the aorta with diffuse aortic ectasia and fusiform aneurysmal dilatation at the level of the bifurcation. The aorta measures 3.1 cm at the bifurcation. The iliac vessels are ectatic and tortuous. GI tract: There is poor oral contrast opacification. There are no gross abnormalities. There is no obstruction. Pelvic organs: The prostate and seminal vesicles appear normal Bladder: There are no bladder masses. Abdominal and pelvic soft tissues: Subcutaneous edema consistent with anasarca. Osseous structures: There are no acute osseous findings. Other: None IMPRESSION: 1. Bibasilar lung abnormalities as described. 2. Suspect hepatic parenchymal disease. Periportal edema. Probable complex right hepatic cyst. Additional hypoechoic lesions most notably a right hepatic lobe lesion measuring 1.9 cm. A metastatic FOCUS is not excluded. 3. Mesenteric edema. Small amount of free fluid in the presacral space. 4. Distended IVC suggests right heart failure or volume overload. Advanced atherosclerotic change of the aorta with mild fusiform dilatation at the bifurcation.
--- NOTE | 2017-11-27 17:34 | RAD ---
INDICATION: Lung mass. Evaluate for bony lesions COMPARISON: CT abdomen and pelvis September 15, 2017 TECHNIQUE: Noncontrast axial source images was performed from the thoracolumbar junction to the sacrum. Coronal and and sagittal reformatted images were generated. FINDINGS: Vertebrae: There is osteopenia. There is bony demineralization of L5. A permeative lesion is unlikely but not excluded. Consider a bone scan. There is mild multilevel bony spur formation. Alignment: The lumbar vertebrae are normally aligned. Central Canal: There are no significant CT abnormalities of the central canal or foramina. MR imaging is a more sensitive method to evaluate the canal and foramina. Intervertebral disc spaces: There is vacuum disc phenomenon at L4-L5 The remaining disc spaces are maintained. Soft tissues: The paravertebral soft tissues are normal. Other: None IMPRESSION: MILD OSTEOARTHRITIS. THERE IS OSTEOPENIA WITH A RELATIVE INCREASE IN BONE LOSS OF L5. THIS MAY ALL BE RELATED TO OSTEOPOROSIS. CONSIDER A BONE SCAN FOR FOLLOW-UP.
--- NOTE | 2017-11-27 18:19 | PN ---
Subjective Date of Service: 11/27/17 Interval History: Pt feels well. still c/l b/l LE's weakness. HR had been in 120's, off Cardizem gtt last night Objective Active Medications: Acetaminophen (Tylenol Tab*) 650 mg PO Q6H PRN PRN Reason: FEVER/PAIN Albuterol (Ventolin 2.5 Mg/3 Ml Neb.Dea*) 2.5 mg INH Q2H PRN PRN Reason: SOB/WHEEZING Aspirin (Aspirin Ec Low Dose*) 81 mg PO QAM REPLACED BY [facility] Last Admin: 11/27/17 09:24 Dose: 81 mg Device (Nicotine Mouth Piece*) 1 each INH .USE WITH NICOTROL PRN PRN Reason: CRAVING Dexamethasone Sodium Phosphate (Decadron Iv*) 8 mg IV SLOW PU Q6H REPLACED BY [facility] Last Admin: 11/27/17 10:17 Dose: 8 mg Digoxin (Lanoxin Tab*) 0.125 mg PO 1700 REPLACED BY [facility] Docusate Sodium (Colace Cap*) 200 mg PO BID REPLACED BY [facility] Last Admin: 11/26/17 21:39 Dose: 200 mg Sodium Chloride (Ns 0.9% 1000 Ml*) 1,000 mls @ 125 mls/hr IV PER RATE REPLACED BY [facility] Last Admin: 11/27/17 14:48 Dose: 125 mls/hr Melatonin (Melatonin (Nf)) 3 mg PO BEDTIME PRN; Protocol PRN Reason: Sleep Metoprolol Tartrate (Lopressor Tab*) 12.5 mg PO Q12HR REPLACED BY [facility] Metoprolol Tartrate (Lopressor Iv*) 5 mg IV Q4H PRN PRN Reason: TACHYCARDIA Mometasone Furoate/Formoterol Fumar (Dulera 200/5 Mdi*) 2 puff INH BID REPLACED BY [facility] Last Admin: 11/27/17 07:21 Dose: 2 puff Nicotine (Nicotine Inhaler*) 10 mg INH Q2H PRN PRN Reason: CRAVING Omeprazole (Prilosec Cap*) 20 mg PO DAILY@0600 REPLACED BY [facility] Last Admin: 11/27/17 06:24 Dose: 20 mg Ondansetron HCl (Zofran Inj*) 4 mg IV Q6H PRN PRN Reason: NAUSEA Vital Signs - 8 hr 11/27/17 11/27/17 12:00 12:32 Temperature 98.8 F Pulse Rate 113 Oxygen Devices in Use Now: None Appearance: 67 yo M in nAD, AAOx3, poor historian Eyes: No Scleral Icterus, PERRLA Ears/Nose/Mouth/Throat: NL Teeth, Lips, Gums, Mucous Membranes Moist Neck: NL Appearance and Movements; NL JVP, Trachea Midline Respiratory: Symmetrical Chest Expansion and Respiratory Effort, - - distant breath sounds b/l Cardiovascular: - - irregular Abdominal: NL Sounds; No Tenderness; No Distention, No Hepatosplenomegaly Lymphatic: No Cervical Adenopathy Extremities: No Clubbing, Cyanosis Skin: - - subcu nodule in mid abd at 2 cm in diam , mildly tender, another similar nodule next to L spine on left Neurological: Alert and Oriented x 3, - - b/l distal LE's spastic with positive Babinski b/l L>R Result Diagrams: 11/27/17 05:00 11/27/17 05:00 Microbiology and Other Data: Microbiology 11/25/17 10:16 Aerobic Blood Culture - Preliminary Blood Venous No Growth Day 1 Anaerobic Blood Culture - Preliminary No Growth Day 1 Assess/Plan/Problems-Billing Assessment: 67 yo M p/w less than a week of increasing LE weakness and numbness found with left perihilar consolidation and concern for cervical/thoracic process - Patient Problems (1) Cord compression Comment: appears to be related to pathologic fx of T7 Appreciate neurology consult Plan for MRI cervical throacic, lumbar spine tomorrow when pt is intubated after bronch. Pt got in apnea again when attempted MRI of spine on 11/26/16 when under anesthesia care Cont Decadron IV. (2) Lung mass Comment: at 6x5 cm in left lung with satelite lesions and compression fx on T7, also pt has subcu nodules on abd and left flank Oncolcogy will see pt in AM Bronchoscopy with Dr. Hyde in AM (3) Atrial fibrillation Comment: new onset complicated aflutter RVR lovenox BID held prior to bronchoscopy tomorrow with Dr. Hyde On digoxin, lopressor, cardiology consulted. EF 25% (4) DVT prophylaxis Comment: SCD's, anticoagulation held for bronchoscopy in AM. Later will probrbrly place pt on heparin gtt Status and Disposition: inpatient
[2017-11-27] MEDS: Digoxin TAB* 0.125 MG PO SCH (18:31)
[2017-11-27] MEDS: Metoprolol Tartrate TAB* 25 MG PO SCH (21:46)
[2017-11-27] MEDS: Metoprolol Tartrate IV* 1 MG/ML 5 ML VIAL IV PRN (22:23)
--- NOTE | 2017-11-27 23:07 | CONS ---
CONSULTATION REPORT: DATE OF CONSULT: 11/27/17 HISTORY OF PRESENT ILLNESS: The patient is a very pleasant 67-year-old gentleman who was admitted through the hospital with lower extremity weakness since 11/19/17. The patient was evaluated initially by Dr. Zaragoza who diagnosed the patient with possible metastatic spine disease and lower extremity weakness and suggested MRI of his cervical and thoracic spine. Unfortunately, the patient was not able to have this imaging because he was not able to tolerate the MRI. Requested to see the patient by Dr. Rangel because of the possibility of metastatic spine disease. The patient reports that he has been having weakness in both lower extremities for the last several days. He reports that the day of his admission, he had one episode of significant weakness in the lower extremities and a fall after he got up from his bed to go to the bathroom. He was not able to ambulate and was admitted to the hospital. The patient reports that he is a smoker and has a history of 30-pound weight loss. He noted some subcutaneous nodules in the abdomen and his labral area recently. The patient reports that he has significant weakness in both lower extremities without loss of sensation, but he has been having significant difficulty with his balance as well as inability to ambulate. He denies any urinary urgency or incontinence, although the patient is a somewhat poor historian and the history was obtained from the patient, the patient's ex- at the bedside and the patient's chart. PAST MEDICAL HISTORY: Emphysema, diverticulosis, history of Lyme disease. PAST SURGICAL HISTORY: Vocal polyp excision. ALLERGIES: No known drug allergies. FAMILY HISTORY: Mother, congestive heart failure, hypertension; father, coronary artery disease and CVA; sister, lung cancer. SOCIAL HISTORY: Tobacco, positive. Alcohol, negative. Recreational drug use, negative. PHYSICAL EXAM: The patient is awake, alert, oriented x3. Pupils are equal and reactive. Cranial nerves II through XII are grossly intact. Motor 5/5 in upper extremities, 3/5 in both hip flexions. Knee extension 3-4/5. Foot dorsiflexion, EHL 4-/5. Plantar flexion 4-/5 bilaterally. Sensory is grossly intact to light touch, although it was described initially by Dr. Zaragoza that the patient has a sensory level in the scapular area to pin discrimination. The patient has been on steroids since the initial presentation. Position is absent in bilateral lower extremities. Deep tendon reflexes +1 bilaterally in the upper extremities, +2 bilaterally in the lower extremities. The patient does have spasticity in both lower extremities and 2 beats of clonus and Babinski bilateral. Og's questionable in bilateral upper extremities. The patient has no tenderness to palpation of the thoracic or lumbar spine. He has free range of motion of cervical spine. He does have several subcutaneous nodules in his abdominal area as well as his left lumbar paraspinal area. DIAGNOSTIC STUDIES/LAB DATA: The patient had CT scan of his brain that did not reveal any significant intracranial pathology. The patient had a CT scan of his cervical spine that did not reveal any evidence of fracture or subluxation. The patient has today a CT scan of his thoracic spine that reveals a left paraspinal mass at the T7 approximate level with infiltration of the T7 left pedicle. On the lumbar spine CT, the patient has degenerative changes at L4-5 and L5-S1. Unfortunately, the patient was not able to tolerate MRI of the spine despite several efforts. ASSESSMENT: The patient is a very pleasant 67-year-old gentleman with history of emphysema, diverticulosis, Lyme disease and tobacco use, who presented with lower extremity weakness and loss of sensation with a T7 left paraspinal mass with possible extension into the left T7 pedicle. PLAN: The patient at this point has strong suspicion of cord compression, possibly at the T7 level. In the context of a left paraspinal mass, there is a suspicion for spinal metastatic disease with possible epidural component. Unfortunately, so far the patient was not able to tolerate MRI, but he is scheduled for a bronchoscopy tomorrow with general anesthesia and he is going to be transferred to the MRI for completion of MRI of the cervical, thoracic, and lumbar spine. The patient may require surgical decompression and stabilization based on his presentation, but we will be able to finalize the recommendations after the MRI study. The patient also has been diagnosed with atrial fibrillation at this admission and he is in the intensive care unit. If surgical intervention will be offered, the patient will require medical clearance prior to the procedure and the patient also is scheduled to have an evaluation by Oncology. Thank you for allowing us to participate in the care of this patient. Please do not hesitate to contact our office in case if you have any further questions or concerns regarding the care of this patient. Gelacio Velez MD [id number] #: [id number] RICKIE
[2017-11-28] MEDS: Dexamethasone IV* 4 MG/ML 1 ML (4 MG) IV SLOW PU SCH ×4 (04:28→21:43)
[2017-11-28] MEDS: Metoprolol Tartrate IV* 1 MG/ML 5 ML VIAL IV PRN ×2 (06:13→23:10)
[2017-11-28] MEDS: Omeprazole CAP* 20 MG PO SCH (06:13)
[2017-11-28] MEDS: Docusate CAP* 100 MG PO SCH ×2 (08:58→21:42)
[2017-11-28] MEDS: Metoprolol Tartrate TAB* 25 MG PO SCH ×2 (08:58→17:02)
[2017-11-28] MEDS ORDERED: Lidocaine 1% INJ* 10 MG/ML 30 ML SDV ONE (09:55)
[2017-11-28] MEDS: Mometasone/Formoter 200/5 MDI INH SCH ×2 (09:58→20:12)
--- NOTE | 2017-11-28 10:07 | PN ---
Subjective Date of Service: 11/28/17 Interval History: Pt briefly seen during liver US, appears dyspneic more today. no new complaints , still b/l LE's weakness Objective Active Medications: Acetaminophen (Tylenol Tab*) 650 mg PO Q6H PRN PRN Reason: FEVER/PAIN Albuterol (Ventolin 2.5 Mg/3 Ml Neb.Dea*) 2.5 mg INH Q2H PRN PRN Reason: SOB/WHEEZING Device (Nicotine Mouth Piece*) 1 each INH .USE WITH NICOTROL PRN PRN Reason: CRAVING Dexamethasone Sodium Phosphate (Decadron Iv*) 8 mg IV SLOW PU Q6H [facility] Last Admin: 11/28/17 08:58 Dose: 8 mg Digoxin (Lanoxin Tab*) 0.125 mg PO 1700 [facility] Last Admin: 11/27/17 18:31 Dose: 0.125 mg Docusate Sodium (Colace Cap*) 200 mg PO BID [facility] Last Admin: 11/28/17 08:58 Dose: 200 mg Melatonin (Melatonin (Nf)) 3 mg PO BEDTIME PRN; Protocol PRN Reason: Sleep Metoprolol Tartrate (Lopressor Tab*) 12.5 mg PO Q12HR [facility] Last Admin: 11/28/17 08:58 Dose: 12.5 mg Metoprolol Tartrate (Lopressor Iv*) 5 mg IV Q4H PRN PRN Reason: TACHYCARDIA Last Admin: 11/28/17 06:13 Dose: 5 mg Mometasone Furoate/Formoterol Fumar (Dulera 200/5 Mdi*) 2 puff INH BID [facility] Last Admin: 11/28/17 09:58 Dose: Not Given Nicotine (Nicotine Inhaler*) 10 mg INH Q2H PRN PRN Reason: CRAVING Omeprazole (Prilosec Cap*) 20 mg PO DAILY@0600 [facility] Last Admin: 11/28/17 06:13 Dose: 20 mg Ondansetron HCl (Zofran Inj*) 4 mg IV Q6H PRN PRN Reason: NAUSEA Vital Signs - 8 hr 11/28/17 11/28/17 11/28/17 02:00 02:15 02:30 Temperature Pulse Rate 103 104 96 Respiratory 21 17 21 Rate Blood Pressure 153/104 (mmHg) O2 Sat by Pulse 96 98 96 Oximetry 11/28/17 11/28/17 11/28/17 02:45 03:00 03:01 Temperature Pulse Rate Respiratory 25 24 24 Rate Blood Pressure 164/107 (mmHg) O2 Sat by Pulse Oximetry 11/28/17 11/28/17 11/28/17 03:15 03:30 03:45 Temperature Pulse Rate 96 99 100 Respiratory 22 24 21 Rate Blood Pressure (mmHg) O2 Sat by Pulse 95 91 98 Oximetry 11/28/17 11/28/17 11/28/17 04:00 04:02 04:15 Temperature 98.5 F Pulse Rate 112 125 110 Respiratory 18 29 16 Rate Blood Pressure 142/108 (mmHg) O2 Sat by Pulse 99 98 97 Oximetry 11/28/17 11/28/17 11/28/17 04:30 04:45 05:00 Temperature Pulse Rate 122 116 125 Respiratory 15 24 17 Rate Blood Pressure 153/109 (mmHg) O2 Sat by Pulse 98 91 94 Oximetry 11/28/17 11/28/17 11/28/17 05:15 05:30 05:45 Temperature Pulse Rate 106 108 128 Respiratory 19 21 27 Rate Blood Pressure (mmHg) O2 Sat by Pulse 97 98 94 Oximetry 11/28/17 11/28/17 11/28/17 06:00 06:15 06:30 Temperature Pulse Rate 103 149 104 Respiratory 25 19 21 Rate Blood Pressure 146/103 (mmHg) O2 Sat by Pulse 98 95 96 Oximetry 11/28/17 11/28/17 11/28/17 06:45 07:00 07:01 Temperature Pulse Rate 98 98 105 Respiratory 22 22 21 Rate Blood Pressure 139/92 (mmHg) O2 Sat by Pulse 96 96 97 Oximetry 11/28/17 11/28/17 11/28/17 07:15 07:30 07:45 Temperature Pulse Rate 118 102 137 Respiratory 29 20 16 Rate Blood Pressure (mmHg) O2 Sat by Pulse 96 95 96 Oximetry 11/28/17 11/28/17 11/28/17 08:00 08:15 08:30 Temperature 98.7 F Pulse Rate 113 130 120 Respiratory 33 19 24 Rate Blood Pressure 151/103 (mmHg) O2 Sat by Pulse 93 95 92 Oximetry 11/28/17 11/28/17 08:45 09:00 Temperature Pulse Rate 126 120 Respiratory 25 16 Rate Blood Pressure 141/107 (mmHg) O2 Sat by Pulse 95 96 Oximetry Oxygen Devices in Use Now: None Appearance: 67 yo m in nAD, AAOx3, poor historian Eyes: No Scleral Icterus, PERRLA Ears/Nose/Mouth/Throat: NL Teeth, Lips, Gums, Mucous Membranes Moist Neck: NL Appearance and Movements; NL JVP, Trachea Midline Respiratory: Symmetrical Chest Expansion and Respiratory Effort, - - crackles at b/l bases Cardiovascular: - - irregular, tachy Abdominal: NL Sounds; No Tenderness; No Distention, No Hepatosplenomegaly, - - subcu nodules palpable in mid abdomen and left flank Lymphatic: No Cervical Adenopathy Extremities: No Edema, No Clubbing, Cyanosis Skin: No Rash or Ulcers Neurological: Alert and Oriented x 3, - - b/l distal LE's spastic, with decreased motor strength and Babinski + b/l Result Diagrams: 11/27/17 05:00 11/27/17 05:00 Microbiology and Other Data: Microbiology 11/25/17 10:16 Aerobic Blood Culture - Preliminary Blood Venous No Growth Day 1 Anaerobic Blood Culture - Preliminary No Growth Day 1 Assess/Plan/Problems-Billing Assessment: 67 yo M p/w less than a week of increasing LE weakness and numbness found with left perihilar consolidation and concern for cervical/thoracic process - Patient Problems (1) Cord compression Comment: appears to be related to pathologic fx of T7 Appreciate neurology consult Anesthesia not comfortable with sedating and intubating the pt. Plan for liver bx (Dr. Purdy) and subcu nodule bx(Dr. Roberts) Cont Decadron IV. Initially neurosurgery recommended bedrest, placed a call to Dr. Balderrama to see if TLSO brace may be an option. (2) Lung mass Comment: at 6x5 cm in left lung with satelite lesions and compression fx on T7, also pt has subcu nodules on abd and left flank and liver lesions on CT abd. Oncolcogy will see pt today. Unable to do bronchoscopy (3) Atrial fibrillation Comment: new onset complicated aflutter RVR lovenox BID held on 11/27/17 EF 25, mod MR, AR, cardiology following (4) DVT prophylaxis Comment: SCD's, anticoagulation held for biopsies today. Status and Disposition: inpatient
[2017-11-28] MEDS ORDERED: Metoprolol Tartrate TAB* 25 MG PO SCH ×2 (10:10→12:00)
--- NOTE | 2017-11-28 11:37 | PN ---
Progress Note - Progress Note Date of Service: 11/28/17 Note: Surgery Procedure Note Under sterile conditions, using 1% Lidocaine, FNA of a nodule on the abdominal wall was done without difficulty. Pt. tolerated the procedure well. Cytology sent. Sangita
[2017-11-28] MEDS ORDERED: Iohexol 300* (CONTRAST) 10 ML SDV IV ONE (11:41)
--- NOTE | 2017-11-28 12:04 | PN ---
Progress Note - Progress Note Date of Service: 11/28/17 - Pulm/critical care note Note: Pt seen and examined bedside. Pt reports poor sleep last night, reports SOB and anxiety Active Medications Generic Name Dose Route Start Last Admin Trade Name Freq PRN Reason Stop Dose Admin Acetaminophen 650 mg 11/24/17 23:15 Tylenol Tab* PO Q6H PRN FEVER/PAIN Albuterol 2.5 mg 11/24/17 23:15 Ventolin 2.5 Mg/3 Ml Neb.Dea* INH Q2H PRN SOB/WHEEZING Device 1 each 11/24/17 23:15 Nicotine Mouth Piece* INH .USE WITH NICOTROL PRN CRAVING Dexamethasone Sodium Phosphate 8 mg 11/25/17 16:00 11/28/17 08:58 Decadron Iv* IV SLOW PU 8 mg Q6H [facility] Administration Digoxin 0.125 mg 11/27/17 17:00 11/27/17 18:31 Lanoxin Tab* PO 0.125 mg 1700 [facility] Administration Docusate Sodium 200 mg 11/25/17 09:00 11/28/17 08:58 Colace Cap* PO 200 mg BID [facility] Administration Enoxaparin Sodium 40 mg 11/28/17 12:00 Lovenox(*) SUBCUT Q24H [facility] Melatonin 3 mg 11/24/17 23:15 Melatonin (Nf) PO BEDTIME PRN Sleep Protocol Metoprolol Tartrate 5 mg 11/27/17 15:30 11/28/17 06:13 Lopressor Iv* IV 5 mg Q4H PRN Administration TACHYCARDIA Metoprolol Tartrate 25 mg 11/28/17 12:00 Lopressor Tab* PO Q8H [facility] Mometasone Furoate/Formoterol Fumar 2 puff 11/25/17 09:00 11/28/17 09:58 Dulera 200/5 Mdi* INH Not Given BID S[facility]IAGO Nicotine 10 mg 11/24/17 23:15 Nicotine Inhaler* INH Q2H PRN CRAVING Omeprazole 20 mg 11/25/17 06:00 11/28/17 06:13 Prilosec Cap* PO 20 mg DAILY@0600 [facility] Administration Ondansetron HCl 4 mg 11/24/17 23:15 Zofran Inj* IV Q6H PRN NAUSEA Vital Signs Temp Pulse Resp BP Pulse Ox 98.4 F 120 16 141/107 96 11/28/17 11:31 11/28/17 09:00 11/28/17 09:00 11/28/17 09:00 11/28/17 09:00 O/E: pt in NAD, thin male, appears exhausted HEENT: PERRLA, No JVD Lungs: diminished air entry b/l CVS: S1, S2, irregular, tachycardic Abd: Soft, BS+ Skin: painful nodule anteriorly and in para spinal area in back that is more prominant and tender Neuro: Alert, awake, oriented x3, weakness of LE Laboratory Results - last 24 hr 11/28/17 11/28/17 06:50 10:23 Digoxin 0.8 Flow Intrp 2-8 Markers TNP Flow Intrp 16+ Markers TNP I/R: 67 y o m with signficant smoking history a/w LE weakness found to have metastatic disease Pt with superficial nodules, one of them biopsied this am by DR Roberts, positive for malignancy Will not need any other biopsies at this time He was seen by Dr De Jesus this am, Radiation oncology Dr Gentile was notified of preliminary dx, final path pending Plan for radiation to his spine HR continues to remain elevated, Is on metoprolol, will increase dose to 25mg bid Couldnot get MRI, given inability to lie down flat due to SOB, became apneic after anesthesia was given Diet restarted as no plans for biopsy ECHO showed severely decreased EF, has been in and out of A.fib Pt to have PT, OOB to chair as tolerated , OKed by neuro sx Is on decadron Family at bedside, aware of prognosis and prelim diagnosis D/w Dr De Jesus, Dr Rangel
--- NOTE | 2017-11-28 12:51 | RAD ---
Indication: Lower extremity weakness. CT of the brain was performed without and with IV contrast. Postcontrast images were obtained after intravenous injection of 75 mL of Omnipaque 300. Ventricular structures are midline. No midline shift is noted. The extraction spaces are unremarkable. There is no evidence of intracranial mass or hemorrhage. No other high or low density lesions are identified. No abnormally enhancing lesions are noted. Mastoid air cells and paranasal sinuses are unremarkable. IMPRESSION: No intracranial mass or hemorrhage. No enhancing lesions are noted.
[2017-11-28] MEDS: Enoxaparin(*) 40 MG/0.4 ML SYR SUBCUT SCH (14:31)
--- NOTE | 2017-11-28 14:53 | RAD ---
INDICATION: CT for radiation therapy mapping COMPARISON: CT cervical, thoracic, lumbar spine November 27, 2017; CT chest November 25, 2017 TECHNIQUE: 152 noncontrast, nondiagnostic, axial source images of the spine were acquired. FINDINGS: The patient has known lung and mediastinal masses addition to paraspinous and bone lesions. Please refer to recent Please refer also to recent CT reports. IMPRESSION: A SIM study was performed for radiation planning purposes.
[2017-11-28] MEDS ORDERED: LORazepam TAB(*) 0.5 MG ONE (14:59)
[2017-11-28] MEDS: LORazepam TAB(*) 0.5 MG PO PRN ×2 (15:00→21:42)
--- NOTE | 2017-11-28 15:57 | PN ---
Progress Note - Progress Note Date of Service: 11/28/17 Note: Patient not in ICU. Transferred to radiation for treatment. Unfortunately patient was not able to have MRI of spine. Not able to tolerate general anesthesia or surgical intervention per anesthesia team because of heart failure. Patient will be treated with radiation. Will be available if needed. Appreciate IM, Oncology, Anesthesia input. Gelacio Velez MD
[2017-11-28] MEDS: Digoxin TAB* 0.125 MG PO SCH ×2 (17:02→17:47)
--- NOTE | 2017-11-28 18:16 | CONS ---
CONSULTATION REPORT: DATE OF CONSULT: 11/28/17 REASON FOR CONSULT: Lung cancer. HISTORY OF PRESENT ILLNESS: A 67-year-old male, former smoker, who had generally been in good health. He woke up on Friday morning this past week with sudden lower extremity weakness. He had very little feeling in both lower extremities from hip to the toe, left side is worse than the right side. He tried to walk, but then there was sudden weakness and his legs gave out. He thought it was temporary, so he got by at home. Over several days, he walked with a cane and then "crawled around." Symptoms were not getting any better by Friday and he called Dr. Mills's office. He went into see a nurse practitioner, was sent directly to the emergency room. He also reports fatigue for several months, he has a 35-pound weight loss, and most of that since . He has had constipation ever since he has been diagnosed with diverticulosis 6 months ago and changing his diet. He has not had any fevers, chills, or night sweats. He has had cough for several months and he reports being short of breath over the past year. Shortness of breath has been complicated by significant sinus symptoms and he cannot lie flat without having difficulty breathing because he feels so stuffed up in his upper airway. In the emergency room, he had non-contrast CT of the brain that was negative followed by a chest x-ray that showed a left perihilar consolidation and then a CT scan of the chest. CT scan of the chest showed a mass in the anterior left perihilar caodaism. There was adjacent consolidation and large hilar lymph nodes. There is also posteriorly left paraspinal mass measuring 22 mm with extension into the left vertebral body, left pedicle fracture, and question of epidural extension. He had a followup CT scan of the T and L spine. I confirmed the presence of a left paraspinal soft tissue mass with lytic, sclerotic invasion of the T7 pedicle, and a pathologic fracture. On the CT scan , there was not clear evidence of epidural extension. The attempt was made to do an MRI of the spine, but he was very anxious and short of breath when he tried to lie down for the scan. He was given IV Ativan and then became apneic, so the scan was aborted. Evaluation by Anesthesiology but they felt that intubation for procedures including bronchoscopy would be hazardous, so his diagnostic workup was halted. Seen by neurosurgery and not a surgical candidate. Dr. Rangel today noted subcutaneous lesions on the CT scan that could be palpated on exam including a mid abdominal lesion. The mid abdominal lesion was biopsied today and the initial read is consistent with a non-small cell lung cancer. PAST MEDICAL HISTORY: 1. Alcoholism. 2. Diverticulosis. 3. COPD and heavy smoking history. 4. Hematuria. 5. Chronic sinus congestion. 6. Lyme disease. 7. CHF 8. A-fib PAST SURGICAL HISTORY: Vocal cord polyp removed. ALLERGIES: None. FAMILY HISTORY: Stroke and coronary artery disease. Sister with lung cancer at 56. SOCIAL HISTORY: He is . His ex- is with him in clinic today. 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 Heavy drinker in the past, but has not had alcohol lately. He is a pack-a-day smoker, but quit 10 years ago and uses occasional marijuana. He has 2 children and 4 grandchildren. Daughter is in [place]. is the healthcare proxy. REVIEW OF SYSTEMS: Constitutional: Weight loss as noted above. HEENT: Severe sinus congestion lying flat. Endocrine: Negative. Hematologic/ Lymphatic: Negative. Respiratory: Very short of breath, but he is comfortable at rest and in conversation. Cardiac: No known history, CHF found on echocardiogram. Gastrointestinal: Chronic constipation. : Hematuria in the past, but not recently. Musculoskeletal: Some back pain, but not severe and not requiring pain medicine today. Skin: Subcutaneous nodules. He has not palpated and not painful. Neurologic: Lower extremity numbness and weakness as noted above. Psychiatric: Negative. PHYSICAL EXAM: Vital Signs: BP 141/107, heart rate 120, O2 sat 96%, respirations 16. HEENT: Mucosa moist. No lesions. No cervical or supraclavicular lymphadenopathy. Pupils equal, round, and reactive to light. Neurologic: He is alert and oriented x3. He has 4/5 strength in the lower extremities mostly, 3/5 flexion of the knee. We did not walk him. Upper extremity is 5/5. He has normal cerebellar exam and [id number]. He has normal visual baxter. Upper extremity strength is normal. Lungs: Decreased breath sounds throughout. No wheezes. Some base crackles. Heart: Tachy- cardic at 120, appears regular on exam. No murmurs. Abdomen: Nontender and nondistended. Good bowel sounds. Band-Aid where he had the biopsy. Extremities: He has got inward tilt of his left foot. DIAGNOSTIC STUDIES/LAB DATA: Additional diagnostic tests include an echocardiogram that shows an EF of 25% with some focal wall motion abnormality. He had an abdominal ultrasound in the past for an abdominal aortic aneurysm, appears stable on the recent CT scan. Blood work: He was seen in our clinic in the past for leukocytosis. CBC today has hemoglobin 12.3, white count 12,400, MCV 96, platelets 191. He has creatinine of 1, which is slightly elevated for his body mass. Normal potassium and LFTs were normal on 11/24/17. ASSESSMENT AND PLAN: This 67-year-old male found to have metastatic non-small cell lung cancer on initial biopsy and with lower extremity numbness and weakness. CT scan showed a lesion at T7 with the fracture pedicle and cannot rule out epidural invasion. I am not sure the T7 lesion is the cause of his symptoms though it is quite possible. Differential diagnosis would also include central nervous system lesion, stroke. He has been evaluated by Neurosurgery and case was discussed with Dr. Velez and because of difficulty anesthesia, he is not a surgical candidate at this time for decompression. 1. Lower extremity weakness. Dr. Gentile is consulted today. He is on IV dexamethasone go to [address] scan of the head with contrast MARISOL, if negative consider XRT today or sim today and treatment on Friday. 2. Pain. Managed at this time. Low level back pain relative to neurologic symptoms raises question of chronicity of the spinal lesion. 3. Cardiac. He has congestive heart failure, ejection fraction of 25%, and a rapid atrial fibrillation. Unsure if the congestive heart failure is secondary to the chronic tachycardia or if he has underlying cardiac disease. I am going to increase metoprolol to 25 mg q.6 and we will continue him on digoxin. Will need repeat Echo. clinically euvolemic. 4. Non-small cell lung cancer. At this point, he has a compromised performance status and we are awaiting final pathology. We discussed that he likely has metastatic cancer that is not curable, but we will need to determine what systemic therapy he is eligible to as his condition is further delineated with above studies. 5. Social support. He lives alone. Daughter is in town. Limited social support and disposition could be an issue. I will have Physical Therapy see him now and I would like to get him up and moving. Imaging reviewed and spine stable. 6. He can go back to regular diet. Other than CT scan of the head, no additional studies planned. 7. DVT prophylaxis with Lovenox. We will have him on the oncology service going forward. [id number]/[facility] #: [id number] [facility]DL[facility]
[2017-11-28] MEDS: Senna TAB PO SCH (21:42)
[2017-11-29] MEDS: Metoprolol Tartrate TAB* 25 MG PO SCH ×3 (01:04→16:50)
[2017-11-29] MEDS: Dexamethasone IV* 4 MG/ML 1 ML (4 MG) IV SLOW PU SCH ×4 (04:31→22:11)
[2017-11-29 05:53] LABS: Hematocrit 39 % (42-52); Hemoglobin 13.6 g/dl (14.0-18.0); Mean Corpuscular HGB Conc 35 g/dl (31-36); Mean Corpuscular Hemoglobin 33 pg (27-31); Mean Corpuscular Volume 94 fL (80-94); Mean Platelet Volume 10 um3 (7.4-10.4); Platelet Count 197 10^3/ul (150-450); Red Blood Count 4.19 10^6/ul (4.0-5.4); Red Cell Distribution Width 13 % (10.5-15); White Blood Count 12.1 10^3/ul (3.5-10.8)
[2017-11-29 06:03] LABS: ABS Basophils 0 10^3/ul (0-0.2); ABS Eosinophils 0 10^3/ul (0-0.6); ABS Monocytes 0.8 10^3/ul (0-0.8); ABS Nucleated RBC 0 10^3/ul; Eosinophil % 0.1 % (0-6); Lymphocyte % 8.1 % (25-47); Nucleated Red Blood Cells % 0
[2017-11-29] MEDS: Omeprazole CAP* 20 MG PO SCH (06:03)
[2017-11-29 06:07] LABS: EGFR Non-African American 99.3 (>60)
[2017-11-29] MEDS: Polyethylene Glycol 3350* 17 GM PACKET PO PRN (06:39)
[2017-11-29] MEDS: Mometasone/Formoter 200/5 MDI INH SCH ×2 (07:38→19:59)
[2017-11-29] MEDS: Senna TAB PO SCH ×2 (08:32→22:11)
[2017-11-29] MEDS: Docusate CAP* 100 MG PO SCH ×2 (08:33→22:11)
[2017-11-29] MEDS: LORazepam TAB(*) 0.5 MG PO PRN ×2 (08:33→12:53)
--- NOTE | 2017-11-29 09:20 | PN ---
Progress Note - Progress Note Date of Service: 11/29/17 - Pulm f/u note Note: Pt seen and examined at bedside. Reports feeling anxious and weak after knowing new diagnosis. Reports that he has never been sick before. Appetite is improving. Was able to get out of bed yesterday with help, still weak standing up. Active Medications Generic Name Dose Route Start Last Admin Trade Name Freq PRN Reason Stop Dose Admin Acetaminophen 650 mg 11/24/17 23:15 Tylenol Tab* PO Q6H PRN FEVER/PAIN Albuterol 2.5 mg 11/24/17 23:15 Ventolin 2.5 Mg/3 Ml Neb.Dea* INH Q2H PRN SOB/WHEEZING Device 1 each 11/24/17 23:15 Nicotine Mouth Piece* INH .USE WITH NICOTROL PRN CRAVING Dexamethasone Sodium Phosphate 8 mg 11/25/17 16:00 11/29/17 04:31 Decadron Iv* IV SLOW PU Not Given Q6H [facility]IAGO Digoxin 0.125 mg 11/27/17 17:00 11/28/17 17:47 Lanoxin Tab* PO 0.125 mg 1700 [facility]O Administration Docusate Sodium 200 mg 11/25/17 09:00 11/29/17 08:33 Colace Cap* PO 200 mg BID [facility]AGO Administration Enoxaparin Sodium 40 mg 11/28/17 12:00 11/28/17 14:31 Lovenox(*) SUBCUT 40 mg Q24H [facility] Administration Lorazepam 0.5 mg 11/28/17 14:58 11/29/17 08:33 Ativan Tab(*) PO 0.5 mg Q4H PRN Administration ANXIETY Melatonin 3 mg 11/24/17 23:15 11/28/17 21:42 Melatonin (Nf) PO 3 mg BEDTIME PRN Administration Sleep Protocol Metoprolol Tartrate 5 mg 11/27/17 15:30 11/28/17 23:10 Lopressor Iv* IV 5 mg Q4H PRN Administration TACHYCARDIA Metoprolol Tartrate 25 mg 11/28/17 17:00 11/29/17 08:33 Lopressor Tab* PO 25 mg 0100,0900,1700 [facility]O Administration Mometasone Furoate/Formoterol Fumar 2 puff 11/25/17 09:00 11/29/17 07:38 Dulera 200/5 Mdi* INH 2 puff BID S[facility]IAGO Administration Nicotine 10 mg 11/24/17 23:15 Nicotine Inhaler* INH Q2H PRN CRAVING Omeprazole 20 mg 11/25/17 06:00 11/29/17 06:03 Prilosec Cap* PO Not Given DAILY@0600 [facility] Ondansetron HCl 4 mg 11/24/17 23:15 Zofran Inj* IV Q6H PRN NAUSEA Polyethylene Glycol/Electrolytes 17 gm 11/28/17 17:08 11/29/17 06:39 Miralax* PO 17 gm Q12H PRN Administration CONSTIPATION Senna 2 tab 11/28/17 21:00 11/29/17 08:32 Senokot Tab* PO 2 tab BID S[facility]IAGO Administration Vital Signs Temp Pulse Resp BP Pulse Ox 98.2 F 92 7 153/94 97 11/29/17 07:59 11/29/17 08:30 11/29/17 09:00 11/29/17 09:00 11/29/17 08:30 O/E: Pt in NAD, thin male, slightly anxious HEENT: PERRLA, no JVD Lungs: Diminished air entry b/l, no wheeze CVS: S1, S2+, irregular Abd: Soft, BS+ Ext: No edema Skin: Tender nodules palpable in ant chest and paraspinal area in back Neuro: Alert, awake, oriented Laboratory Results - last 24 hr 11/28/17 11/29/17 11/29/17 10:23 05:45 05:45 WBC 12.1 H RBC 4.19 Hgb 13.6 L Hct 39 L MCV 94 MCH 33 H MCHC 35 RDW 13 Plt Count 197 MPV 10 Neut % (Auto) 85.0 H Lymph % (Auto) 8.1 L Merrick % (Auto) 6.5 Eos % (Auto) 0.1 Baso % (Auto) 0.3 Absolute Neuts (auto) 10.0 H Absolute Lymphs (auto) 1.0 Absolute Monos (auto) 0.8 Absolute Eos (auto) 0 Absolute Basos (auto) 0 Absolute Nucleated RBC 0 Nucleated RBC % 0 Sodium 130 L Potassium 3.9 Chloride 96 L Carbon Dioxide 26 Anion Gap 8 BUN 27 H Creatinine 0.78 Est GFR ( Amer) 127.7 Est GFR (Non-Af Amer) 99.3 BUN/Creatinine Ratio 34.6 H Glucose 120 H Calcium 8.9 Magnesium 2.0 Total Bilirubin 1.00 AST 40 H ALT 66 H Alkaline Phosphatase 72 Total Protein 6.1 L Albumin 3.6 Globulin 2.5 Albumin/Globulin Ratio 1.4 Flow Intrp 2-8 Markers TNP Flow Intrp 16+ Markers TNP I/R: 67 y o m with significant smoking history a/w LE weakness, numbness found to have metastatic disease likely lung primary Pt had biopsy of subcutaneous nodule anteriorly, pathology showed malignant cells Couldnot get MRI due to apneas after sedation Pt received radiation yesterday with plan to continue with radiation while awaiting final path Pt with A.fib, RVR intermittently, on Lopressor for rate control and Lovenox c/w nebs prn Pt under oncology service No plan for bronch/EBUS as diagnosis was obtained Will sign off from pulmonary perspective Can be transferred to regular floor if OK with oncology
[2017-11-29] MEDS ORDERED: Magnesium Hydroxide LIQ* 30 ML UDC PO ONE (12:23)
[2017-11-29] MEDS: Enoxaparin(*) 40 MG/0.4 ML SYR SUBCUT SCH (12:47)
[2017-11-29] MEDS: Metoprolol Tartrate IV* 1 MG/ML 5 ML VIAL IV PRN (14:26)
[2017-11-29] MEDS: Digoxin TAB* 0.125 MG PO SCH (16:50)
[2017-11-30] MEDS: Metoprolol Tartrate TAB* 25 MG PO SCH ×2 (00:16→09:02)
--- NOTE | 2017-11-30 03:15 | RADMED ---
CC: Dr. Mills; Mike Gentile MD; Dr. De Jesus RADIATION ONCOLOGY INPATIENT CONSULTATION NOTE: DATE OF SERVICE: 11/28/17 REFERRING PHYSICIAN: Dr. De Jesus. DIAGNOSIS: Metastatic non-small lung cancer, AJCC stage IV. HISTORY OF PRESENT ILLNESS: Mr. Rowe is a 67-year-old gentleman presenting with numbness and weakness in his legs as well as weight loss and overall decline. He developed subcutaneous nodules, which are painful, and a biopsy of one those nodules has confirmed metastatic high-grade carcinoma consistent with a lung primary (verbal report from pathology). CT scan of the chest performed on 11/25/17 identifies a 6 cm lung mass, multiple pulmonary parenchymal masses with a dominant mass in the left upper lung field as well as a paraspinal mass at approximately the level of T7 with suggestion of epidural extension on CT. He has been unable to obtain MRI on multiple attempts. His neurologic deficit was attributed to the lesion at T7 with suspicion for cord compression. He has been on dexamethasone, and has been ruled out as a surgical candidate based on his medical comorbidity. I did discuss the case with Dr. Velez in Neurosurgery. PAST MEDICAL HISTORY: Lung cancer, as in history of present illness; history of emphysema; diverticulosis; Lyme disease. ALLERGIES: No known drug allergies. MEDICATIONS: As per the hospital record includes dexamethasone. SOCIAL HISTORY: He is accompanied by his daughter and ex-, who are quite supportive. He is a lifelong smoker. FAMILY HISTORY: Significant for his sister who had lung cancer. PHYSICAL EXAMINATION: Vital signs: T98.4, P109, RR21, O2 98%, BP130/98. In general, he is awake, he is alert, he is oriented, cachectic. Normocephalic atraumatic. Sclerae anicteric. Skin shows multiple tender subcutaneous nodules on the belly and back. Lungs with distant breath sounds, but symmetric air entry bilaterally. Cardiovascular: S1, S2 regular. Abdomen: Soft, nontender. Neurologic: Cranial nerves II through XII are intact. Strength is globally decreased, but symmetric in the upper extremities with markedly limited hip flexion particularly on the left and significant weakness in the left lower extremity overall relative to the right. PATHOLOGY AND RADIOLOGY: Reviewed as in the history of present illness. ASSESSMENT AND PLAN: Mr. Rowe is a 67-year-old gentleman with newly diagnosed metastatic non-small cell lung cancer with neurologic deficit in the lower extremities attributable to an aggressive appearing lesion around the T7 vertebral body with a paraspinal mass and suggestion of epidural extension through the neural foramen, although he has not been able to tolerate MRI to confirm. I reviewed his history as well as pathologic and radiographic findings , and discussed at length with the patient and his family, as they are already well informed and familiar. He has been ruled out as a surgical candidate for decompressive spine surgery, and saw Dr. De Jesus earlier today and is recommended to consider palliative radiation therapy to the spine. I explained the logistics and rationale for that treatment to the patient and his family as well as risks, benefits, and alternatives and the acute and long-term frequent and uncommon toxicities. I did answer the patient and his family's questions to the best of my ability. He is inclined to proceed with radiation therapy as discussed, and did sign informed consent. He will undergo a CT simulation today to facilitate treatment planning. For his situation, I recommend 3000 cGy at 300 cGy per fraction, with the intention of delivering his first treatment later today. He can complete radiation therapy on an inpatient or outpatient basis if he can be discharged. Thank you for giving me the opportunity to participate in the care of this very pleasant gentleman. [id number]/[facility] #: [id number] RICKIE
[2017-11-30] MEDS: Omeprazole CAP* 20 MG PO SCH (04:51)
[2017-11-30] MEDS: Dexamethasone IV* 4 MG/ML 1 ML (4 MG) IV SLOW PU SCH ×4 (04:51→20:25)
[2017-11-30] MEDS: Metoprolol Tartrate IV* 1 MG/ML 5 ML VIAL IV PRN (07:45)
[2017-11-30] MEDS: LORazepam TAB(*) 0.5 MG PO PRN (07:48)
[2017-11-30] MEDS: Mometasone/Formoter 200/5 MDI INH SCH ×2 (08:08→19:43)
[2017-11-30] MEDS: Senna TAB PO SCH (09:02)
[2017-11-30] MEDS: Docusate CAP* 100 MG PO SCH (09:07)
[2017-11-30] MEDS: Enoxaparin(*) 40 MG/0.4 ML SYR SUBCUT SCH (11:02)
[2017-11-30] MEDS: Docusate CAP* 100 MG PO PRN (11:05)
[2017-11-30] MEDS: Fluticasone NASAL SPRAY 50MCG* 16 gm SPRAY BTL BOTH NARES SCH (12:16)
[2017-11-30] MEDS: Metoprolol Tartrate TAB* 50 mg PO SCH (17:36)
[2017-11-30] MEDS: Digoxin TAB* 0.125 MG PO SCH (17:37)
[2017-12-01] MEDS: Metoprolol Tartrate TAB* 50 mg PO SCH ×3 (02:00→16:59)
[2017-12-01] MEDS: Dexamethasone IV* 4 MG/ML 1 ML (4 MG) IV SLOW PU SCH ×4 (03:24→21:20)
[2017-12-01] MEDS: Omeprazole CAP* 20 MG PO SCH (05:02)
[2017-12-01 06:29] LABS: ABS Basophils 0 10^3/ul (0-0.2); ABS Eosinophils 0 10^3/ul (0-0.6); ABS Lymphocytes 0.7 10^3/ul (1.0-4.8); ABS Monocytes 0.5 10^3/ul (0-0.8); ABS Neutrophils 12.4 10^3/ul (1.5-7.7); ABS Nucleated RBC 0 10^3/ul; Eosinophil % 0 % (0-6); Hematocrit 40 % (42-52); Lymphocyte % 5.2 % (25-47); Mean Corpuscular HGB Conc 35 g/dl (31-36); Mean Corpuscular Hemoglobin 33 pg (27-31); Mean Corpuscular Volume 94 fL (80-94); Mean Platelet Volume 11 um3 (7.4-10.4); Nucleated Red Blood Cells % 0; Platelet Count 188 10^3/ul (150-450); Red Blood Count 4.28 10^6/ul (4.0-5.4); Red Cell Distribution Width 14 % (10.5-15); White Blood Count 13.6 10^3/ul (3.5-10.8)
[2017-12-01 06:43] LABS: EGFR Non-African American 87.5 (>60)
[2017-12-01] MEDS: Polyethylene Glycol 3350* 17 GM PACKET PO PRN (07:49)
[2017-12-01] MEDS: LORazepam TAB(*) 0.5 MG PO PRN (07:51)
[2017-12-01] MEDS: Senna TAB PO PRN (07:51)
[2017-12-01] MEDS: Docusate CAP* 100 MG PO PRN (07:51)
[2017-12-01] MEDS: Acetaminophen TAB* 325 MG PO PRN ×2 (07:52→17:00)
[2017-12-01] MEDS: Fluticasone NASAL SPRAY 50MCG* 16 gm SPRAY BTL BOTH NARES SCH (07:53)
[2017-12-01] MEDS: Mometasone/Formoter 200/5 MDI INH SCH ×2 (08:01→20:06)
--- NOTE | 2017-12-01 09:21 | PN ---
Progress Note - Progress Note Date of Service: 12/01/17 SOAP: Subjective: still quite weak. moved from the ICU last night and feels that he did not sleep well last night so more globally exhausted/weak today. one loose stool daily. no nausea. breathing ok. trying to eat. Objective: Vital Signs Temp Pulse Resp BP Pulse Ox 97.5 F 79 20 140/86 98 12/01/17 07:26 12/01/17 07:26 12/01/17 07:51 12/01/17 07:26 12/01/17 07:26 cachectic appearing perr eomi op moist distant bs irr irr soft thin, nt +bs no le edema 3/5 RLE, 2/5 LLE strength upper extremities equal A+O x 3 Laboratory Results - last 24 hr 12/01/17 12/01/17 05:59 05:59 WBC 13.6 H RBC 4.28 Hgb 14.0 Hct 40 L MCV 94 MCH 33 H MCHC 35 RDW 14 Plt Count 188 MPV 11 H Neut % (Auto) 91.0 H Lymph % (Auto) 5.2 L [place] % (Auto) 3.7 Eos % (Auto) 0 Baso % (Auto) 0.1 Absolute Neuts (auto) 12.4 H Absolute Lymphs (auto) 0.7 L Absolute Monos (auto) 0.5 Absolute Eos (auto) 0 Absolute Basos (auto) 0 Absolute Nucleated RBC 0 Nucleated RBC % 0 Sodium 131 L Potassium 4.1 Chloride 97 L Carbon Dioxide 26 Anion Gap 8 BUN 35 H Creatinine 0.87 Est GFR ( Amer) 112.6 Est GFR (Non-Af Amer) 87.5 BUN/Creatinine Ratio 40.2 H Glucose 104 H Calcium 8.7 Digoxin 0.7 L Acetaminophen (Tylenol Tab*) 650 mg PO Q6H PRN PRN Reason: FEVER/PAIN Last Admin: 12/01/17 07:52 Dose: 650 mg Albuterol (Ventolin 2.5 Mg/3 Ml Neb.Dea*) 2.5 mg INH Q2H PRN PRN Reason: SOB/WHEEZING Device (Nicotine Mouth Piece*) 1 each INH .USE WITH NICOTROL PRN PRN Reason: CRAVING Dexamethasone Sodium Phosphate (Decadron Iv*) 8 mg IV SLOW PU Q6H [facility] Last Admin: 12/01/17 03:24 Dose: 8 mg Digoxin (Lanoxin Tab*) 0.125 mg PO 1700 [facility] Last Admin: 11/30/17 17:37 Dose: 0.125 mg Docusate Sodium (Colace Cap*) 200 mg PO BID PRN PRN Reason: CONSTIPATION Last Admin: 12/01/17 07:51 Dose: 200 mg Enoxaparin Sodium (Lovenox(*)) 40 mg SUBCUT Q24H [facility] Last Admin: 11/30/17 11:02 Dose: 40 mg Fluticasone Propionate (Flonase Nasal [place] 50mcg*) 2 spray BOTH NARES DAILY [facility] Last Admin: 12/01/17 07:53 Dose: 2 spray Lorazepam (Ativan Tab(*)) 0.5 mg PO Q4H PRN PRN Reason: ANXIETY Last Admin: 12/01/17 07:51 Dose: 0.5 mg Melatonin (Melatonin (Nf)) 3 mg PO BEDTIME PRN; Protocol PRN Reason: Sleep Last Admin: 11/28/17 21:42 Dose: 3 mg Metoprolol Tartrate (Lopressor Iv*) 5 mg IV Q4H PRN PRN Reason: TACHYCARDIA Last Admin: 11/30/17 07:45 Dose: 5 mg Metoprolol Tartrate (Lopressor Tab*) 50 mg PO 0100,0900,1700 [facility] Last Admin: 12/01/17 07:52 Dose: 50 mg Mometasone Furoate/Formoterol Fumar (Dulera 200/5 Mdi*) 2 puff INH BID [facility] Last Admin: 12/01/17 08:01 Dose: 2 puff Nicotine (Nicotine Inhaler*) 10 mg INH Q2H PRN PRN Reason: CRAVING Omeprazole (Prilosec Cap*) 20 mg PO DAILY@0600 [facility] Last Admin: 12/01/17 05:02 Dose: 20 mg Ondansetron HCl (Zofran Inj*) 4 mg IV Q6H PRN PRN Reason: NAUSEA Polyethylene Glycol/Electrolytes (Miralax*) 17 gm PO Q12H PRN PRN Reason: CONSTIPATION Last Admin: 12/01/17 07:49 Dose: 17 gm Senna (Senokot Tab*) 2 tab PO BID PRN PRN Reason: CONSTIPATION Last Admin: 12/01/17 07:51 Dose: 2 tab Assessment: 67 yo M w PMH of heavy tobacco use and COPD presenting with relatively fast growing lung lesion (CT chest reportedly essentially clear in April of this year) , metastatic to liver and spine, with cord compression getting RT. ?small cell Plan: -path still pending -cont steroids 8 mg iv q6 hrs -cont RT -afib still relatively poorly rate controlled but bblocker just increased yesterday -only on prophylactic lovenox since biopsy, will increase back to bid -full code, once pathology available will readdress
[2017-12-01] MEDS: Enoxaparin(*) 60 MG/0.6 ML SYR SUBCUT SCH ×2 (09:55→21:20)
[2017-12-01] MEDS ORDERED: Digoxin IV* 0.5 MG/2 ML AMP (0.25 MG/ML) IV SLOW PU ONE (11:41)
[2017-12-01] MEDS: Captopril TAB* 12.5 MG PO SCH ×3 (12:30→21:21)
[2017-12-01] MEDS: Digoxin TAB* 0.25 MG PO SCH (17:02)
[2017-12-02] MEDS: Metoprolol Tartrate TAB* 50 mg PO SCH ×3 (01:51→19:40)
[2017-12-02] MEDS: Omeprazole CAP* 20 MG PO SCH (04:30)
[2017-12-02] MEDS: Dexamethasone IV* 4 MG/ML 1 ML (4 MG) IV SLOW PU SCH ×4 (04:31→22:36)
[2017-12-02 04:59] LABS: Hematocrit 42 % (42-52); Mean Corpuscular HGB Conc 34 g/dl (31-36); Mean Corpuscular Hemoglobin 32 pg (27-31); Mean Corpuscular Volume 95 fL (80-94); Mean Platelet Volume 10 um3 (7.4-10.4); Platelet Count 195 10^3/ul (150-450); Red Blood Count 4.39 10^6/ul (4.0-5.4); Red Cell Distribution Width 13 % (10.5-15); White Blood Count 15.7 10^3/ul (3.5-10.8)
[2017-12-02 05:14] LABS: EGFR Non-African American 92.4 (>60)
[2017-12-02] MEDS: Mometasone/Formoter 200/5 MDI INH SCH ×2 (07:51→20:47)
[2017-12-02] MEDS: Polyethylene Glycol 3350* 17 GM PACKET PO PRN (10:05)
[2017-12-02] MEDS: Fluticasone NASAL SPRAY 50MCG* 16 gm SPRAY BTL BOTH NARES SCH (10:06)
[2017-12-02] MEDS: Acetaminophen TAB* 325 MG PO PRN (10:06)
[2017-12-02] MEDS: Docusate CAP* 100 MG PO PRN (10:07)
[2017-12-02] MEDS: Senna TAB PO PRN (10:07)
[2017-12-02] MEDS: LORazepam TAB(*) 0.5 MG PO PRN ×2 (10:09→19:41)
[2017-12-02] MEDS: Captopril TAB* 12.5 MG PO SCH ×3 (10:09→19:40)
[2017-12-02] MEDS: Enoxaparin(*) 60 MG/0.6 ML SYR SUBCUT SCH ×2 (10:12→22:35)
[2017-12-02] MEDS: Ondansetron INJ* 2 MG/ML VIAL IV PRN ×2 (10:16→19:59)
[2017-12-02] MEDS: Morphine INJ* 2 MG/ML 1 ML SYRINGE (TWO MG - NEW SYRINGE VERSION) IV PRN ×3 (11:00→19:27)
[2017-12-02] MEDS: Digoxin TAB* 0.25 MG PO SCH (19:40)
[2017-12-02] MEDS: Diltiazem CD CAP* 120 MG PO SCH (19:41)
[2017-12-03] MEDS: Metoprolol Tartrate TAB* 50 mg PO SCH ×3 (01:43→19:40)
[2017-12-03] MEDS: Omeprazole CAP* 20 MG PO SCH (05:12)
[2017-12-03] MEDS: Dexamethasone IV* 4 MG/ML 1 ML (4 MG) IV SLOW PU SCH ×3 (05:13→19:38)
[2017-12-03] MEDS: Mometasone/Formoter 200/5 MDI INH SCH ×2 (08:00→20:55)
[2017-12-03] MEDS: Captopril TAB* 12.5 MG PO SCH ×2 (09:52→14:35)
[2017-12-03] MEDS: Diltiazem CD CAP* 120 MG PO SCH (09:52)
[2017-12-03] MEDS: LORazepam TAB(*) 0.5 MG PO PRN ×2 (09:53→14:35)
[2017-12-03] MEDS: Enoxaparin(*) 60 MG/0.6 ML SYR SUBCUT SCH (09:54)
[2017-12-03] MEDS: Fluticasone NASAL SPRAY 50MCG* 16 gm SPRAY BTL BOTH NARES SCH (11:23)
[2017-12-03] MEDS ORDERED: Ondansetron INJ* 2 MG/ML VIAL IV ONE (15:00)
[2017-12-03] MEDS ORDERED: NS 0.9% IVPB ONE ×2 (15:00→16:00)
[2017-12-03] MEDS ORDERED: ETOPOSIDE IVPB ONE (15:00)
[2017-12-03] MEDS ORDERED: CARBOPLATIN IVPB ONE (16:00)
[2017-12-03] MEDS: Digoxin TAB* 0.25 MG PO SCH (19:39)
[2017-12-03] MEDS: Gabapentin CAP(*) 100 MG PO SCH (19:40)
[2017-12-04] MEDS: Dexamethasone IV* 4 MG/ML 1 ML (4 MG) IV SLOW PU SCH ×5 (00:10→20:42)
[2017-12-04] MEDS: Gabapentin CAP(*) 100 MG PO SCH ×4 (00:13→20:26)
[2017-12-04] MEDS: Enoxaparin(*) 60 MG/0.6 ML SYR SUBCUT SCH ×2 (00:32→09:54)
[2017-12-04] MEDS: Captopril TAB* 12.5 MG PO SCH ×4 (00:40→20:25)
[2017-12-04] MEDS: Metoprolol Tartrate TAB* 50 mg PO SCH ×3 (00:54→16:34)
[2017-12-04] MEDS: Omeprazole CAP* 20 MG PO SCH (05:41)
[2017-12-04] MEDS: Mometasone/Formoter 200/5 MDI INH SCH ×2 (08:41→21:06)
--- NOTE | 2017-12-04 09:44 | PN ---
Progress Note - Progress Note Date of Service: 12/04/17 SOAP: Subjective: []Feeling OK. Still having some pain, generally averaging 3/10. Thinks the narcotics take the edge off. Hasn't had a BM in 2 days and this concerns him. This is his biggest complaint. Feels his right leg is getting stronger but less so of the left. Feels a little overwhelmed, but understands current plan. Medications Acetaminophen (Tylenol Tab*) 650 mg PO Q6H PRN PRN Reason: FEVER/PAIN Last Admin: 12/02/17 10:06 Dose: 650 mg Albuterol (Ventolin 2.5 Mg/3 Ml Neb.Dea*) 2.5 mg INH Q2H PRN PRN Reason: SOB/WHEEZING Captopril (Capoten Tab*) 12.5 mg PO TID [facility] Last Admin: 12/04/17 00:40 Dose: 12.5 mg Device (Nicotine Mouth Piece*) 1 each INH .USE WITH NICOTROL PRN PRN Reason: CRAVING Dexamethasone Sodium Phosphate (Decadron Iv*) 8 mg IV SLOW PU Q6H [facility] Last Admin: 12/04/17 05:39 Dose: 8 mg Digoxin (Lanoxin Tab*) 0.25 mg PO 1700 [facility] Last Admin: 12/03/17 19:39 Dose: 0.25 mg Diltiazem HCl (Cardizem Cd Cap*) 120 mg PO DAILY [facility] Last Admin: 12/03/17 09:52 Dose: 120 mg Docusate Sodium (Colace Cap*) 200 mg PO BID PRN PRN Reason: CONSTIPATION Last Admin: 12/02/17 10:07 Dose: 200 mg Enoxaparin Sodium (Lovenox(*)) 60 mg SUBCUT Q12H [facility] Last Admin: 12/04/17 00:32 Dose: 60 mg Fluticasone Propionate (Flonase Nasal [place] 50mcg*) 2 spray BOTH NARES DAILY [facility] Last Admin: 12/03/17 11:23 Dose: 2 spray Gabapentin (Neurontin Cap(*)) 200 mg PO TID [facility] Last Admin: 12/04/17 00:13 Dose: 200 mg Lactulose (Lactulose*) 30 ml PO Q4H PRN PRN Reason: TILL BOWEL MOVEMENT ACHIEVED Last Admin: 12/02/17 19:28 Dose: 30 ml Lorazepam (Ativan Tab(*)) 0.5 mg PO Q4H PRN PRN Reason: ANXIETY Last Admin: 12/03/17 14:35 Dose: 0.5 mg Melatonin (Melatonin (Nf)) 3 mg PO BEDTIME PRN; Protocol PRN Reason: Sleep Last Admin: 11/28/17 21:42 Dose: 3 mg Metoprolol Tartrate (Lopressor Iv*) 5 mg IV Q4H PRN PRN Reason: TACHYCARDIA Last Admin: 11/30/17 07:45 Dose: 5 mg Metoprolol Tartrate (Lopressor Tab*) 50 mg PO 0100,0900,1700 [facility] Last Admin: 12/04/17 00:54 Dose: Not Given Mometasone Furoate/Formoterol Fumar (Dulera 200/5 Mdi*) 2 puff INH BID [facility] Last Admin: 12/04/17 08:41 Dose: 2 puff Morphine Sulfate (Morphine Inj (Syringe)*) 2 mg IV Q3H PRN PRN Reason: PAIN Last Admin: 12/02/17 19:27 Dose: 2 mg Nicotine (Nicotine Inhaler*) 10 mg INH Q2H PRN PRN Reason: CRAVING Omeprazole (Prilosec Cap*) 20 mg PO DAILY@0600 [facility] Last Admin: 12/04/17 05:41 Dose: Not Given Ondansetron HCl (Zofran Inj*) 4 mg IV Q6H PRN PRN Reason: NAUSEA Last Admin: 12/02/17 19:59 Dose: 4 mg Polyethylene Glycol/Electrolytes (Miralax*) 17 gm PO Q12H PRN PRN Reason: CONSTIPATION Last Admin: 12/02/17 10:05 Dose: 17 gm Senna (Senokot Tab*) 2 tab PO BID PRN PRN Reason: CONSTIPATION Last Admin: 12/02/17 10:07 Dose: 2 tab Objective: [] Vital Signs Temp Pulse Resp BP Pulse Ox 98.0 F 62 16 103/71 92 12/04/17 08:00 12/04/17 08:00 12/04/17 08:00 12/04/17 08:00 12/04/17 08:00 A&Ox3, EOMI, good sensation throughout HRI, A.Fib on tele, rate controlled LS clear with R base slightly dim., resp. even and non-labored +BS, abd. soft and non-tender UE strength = bilat. 4/4 LE R>L with +left foot drop +PP=bilat. Laboratory Last Values WBC 15.7 10^3/ul (3.5-10.8) H 12/02/17 04:46 RBC 4.39 10^6/ul (4.0-5.4) 12/02/17 04:46 Hgb 14.0 g/dl (14.0-18.0) 12/02/17 04:46 Hct 42 % (42-52) 12/02/17 04:46 MCV 95 fL (80-94) H 12/02/17 04:46 MCH 32 pg (27-31) H 12/02/17 04:46 MCHC 34 g/dl (31-36) 12/02/17 04:46 RDW 13 % (10.5-15) 12/02/17 04:46 Plt Count 195 10^3/ul (150-450) 12/02/17 04:46 MPV 10 um3 (7.4-10.4) 12/02/17 04:46 Neut % (Auto) 91.0 % (38-83) H 12/01/17 05:59 Lymph % (Auto) 5.2 % (25-47) L 12/01/17 05:59 [place] % (Auto) 3.7 % (1-9) 12/01/17 05:59 Eos % (Auto) 0 % (0-6) 12/01/17 05:59 Baso % (Auto) 0.1 % (0-2) 12/01/17 05:59 Absolute Neuts (auto) 12.4 10^3/ul (1.5-7.7) H 12/01/17 05:59 Absolute Lymphs (auto) 0.7 10^3/ul (1.0-4.8) L 12/01/17 05:59 Absolute Monos (auto) 0.5 10^3/ul (0-0.8) 12/01/17 05:59 Absolute Eos (auto) 0 10^3/ul (0-0.6) 12/01/17 05:59 Absolute Basos (auto) 0 10^3/ul (0-0.2) 12/01/17 05:59 Absolute Nucleated RBC 0 10^3/ul 12/01/17 05:59 Nucleated RBC % 0 12/01/17 05:59 ESR 7 mm/Hr (0-40) 11/24/17 16:42 INR (Anticoag Therapy) 1.03 (0.77-1.02) H 11/24/17 16:42 APTT 29.9 seconds (26.0-36.3) 11/24/17 16:42 Sodium 130 mmol/L (133-145) L 12/02/17 04:46 Potassium 4.0 mmol/L (3.5-5.0) 12/02/17 04:46 Chloride 97 mmol/L (101-111) L 12/02/17 04:46 Carbon Dioxide 28 mmol/L (22-32) 12/02/17 04:46 Anion Gap 5 mmol/L (2-11) 12/02/17 04:46 BUN 35 mg/dL (6-24) H 12/02/17 04:46 Creatinine 0.83 mg/dL (0.67-1.17) 12/02/17 04:46 Est GFR ( Amer) 118.8 (>60) 12/02/17 04:46 Est GFR (Non-Af Amer) 92.4 (>60) 12/02/17 04:46 BUN/Creatinine Ratio 42.2 (8-20) H 12/02/17 04:46 Glucose 104 mg/dL (70-100) H 12/02/17 04:46 Lactic Acid 2.0 mmol/L (0.5-2.0) 11/24/17 16:42 Calcium 8.5 mg/dL (8.6-10.3) L 12/02/17 04:46 Magnesium 2.1 mg/dL (1.9-2.7) 12/02/17 04:46 Total Bilirubin 1.10 mg/dL (0.2-1.0) H 12/02/17 04:46 AST 23 U/L (13-39) 12/02/17 04:46 ALT 47 U/L (7-52) 12/02/17 04:46 Alkaline Phosphatase 62 U/L (34-104) 12/02/17 04:46 Troponin I 0.03 ng/mL (<0.04) 11/27/17 05:00 C-Reactive Protein 4.64 mg/L (< 5.00) 11/25/17 04:00 B-Natriuretic Peptide 525 pg/mL (-100) H 11/24/17 16:42 Total Protein 5.4 g/dL (6.4-8.9) L 12/02/17 04:46 Total Protein (PEP) 6.5 g/dL (6.3 - 7.9) 11/24/17 19:40 Albumin 3.2 g/dL (3.2-5.2) 12/02/17 04:46 Albumin (PEP) 3.3 g/dL (3.4-4.7) L 11/24/17 19:40 Globulin 2.2 g/dL (2-4) 12/02/17 04:46 Albumin/Globulin Ratio 1.5 (1-3) 12/02/17 04:46 Albumin/Globulin (PEP) 1.05 11/24/17 19:40 Kintg-4-Woguouqbn 0.3 g/dL (0.1-0.3) 11/24/17 19:40 Cqddj-0-Dmyqkajgp 1.0 g/dL (0.6-1.0) 11/24/17 19:40 Crcc-5-Ateeyjow 0.9 g/dL (0.7-1.2) 11/24/17 19:40 Gamma Globulins 0.9 g/dL (0.6-1.6) 11/24/17 19:40 PEP Impression See comment 11/24/17 19:40 Carcinoembryonic Ag 22.5 ng/mL (0.1-5.0) H 11/24/17 19:40 Whole Bld Vitamin B1 153 nmol/L (70-180) 11/24/17 19:40 Vitamin B12 382 pg/mL (180-914) 11/24/17 16:42 Vit D 1,25-Dihydroxy 34 pg/mL (18-64) 11/24/17 19:40 Procalcitonin 0.1 ng/mL (<0.6) 11/24/17 16:42 TSH 1.92 mcIU/mL (0.34-5.60) 11/24/17 16:42 Urine Color Yellow 11/25/17 05:34 Urine Appearance Clear 11/25/17 05:34 Urine pH 7.0 (5-9) 11/25/17 05:34 Ur Specific [place] 1.014 (1.010-1.030) 11/25/17 05:34 Urine Protein Negative (Negative) 11/25/17 05:34 Urine Ketones Trace (Negative) H 11/25/17 05:34 Urine Blood Negative (Negative) 11/25/17 05:34 Urine Nitrate Negative (Negative) 11/25/17 05:34 Urine Bilirubin Negative (Negative) 11/25/17 05:34 Urine Urobilinogen Negative (Negative) 11/25/17 05:34 Ur Leukocyte Esterase Negative (Negative) 11/25/17 05:34 Urine Glucose Negative (Negative) 11/25/17 05:34 Digoxin 1.1 ng/ml (0.8-2.0) 12/02/17 04:46 Lyme Disease Serology Negative (Negative) 11/24/17 19:40 Flow Intrp 2-8 Markers TNP 11/28/17 10:23 Flow Intrp 9-15 Marker 11/28/17 10:23 Flow Intrp 16+ Markers TNP 11/28/17 10:23 Assessment: []67 yo male with newly diagnosed metastatic small cell lung cancer now on Carbo /Etoposide, C1D2 today; receiving palliative RT d/t cord compression. Plan: []1. Cancer: chemo day 2 with PO etoposide as planned, cont. XRT per Dr. Gentile. 2. Constipation: change colace to scheduled BID, add miralax BID today 3. Weakness: cont. PT, add bilat. multipodus boots (order sent to [employer]) D/C once RT complete as long as pt. stable, will likely need skilled rehab
[2017-12-04] MEDS: Polyethylene Glycol 3350* 17 GM PACKET PO PRN (09:53)
[2017-12-04] MEDS: LORazepam TAB(*) 0.5 MG PO PRN ×2 (09:53→15:00)
[2017-12-04] MEDS: Docusate CAP* 100 MG PO PRN (09:53)
[2017-12-04] MEDS: Fluticasone NASAL SPRAY 50MCG* 16 gm SPRAY BTL BOTH NARES SCH (09:53)
[2017-12-04] MEDS: Diltiazem CD CAP* 120 MG PO SCH (09:53)
[2017-12-04] MEDS: Ondansetron INJ* 2 MG/ML VIAL IV PRN (12:40)
[2017-12-04] MEDS: ETOPOSIDE IVPB SCH (13:24)
[2017-12-04] MEDS: NS 0.9% IVPB SCH (13:24)
[2017-12-04] MEDS: Scopolamine 1.5 mg* PATCH TRANSDERM SCH (15:08)
[2017-12-04] MEDS: Digoxin TAB* 0.25 MG PO SCH (17:42)
[2017-12-04] MEDS: Senna TAB PO PRN (20:25)
[2017-12-04] MEDS: Docusate CAP* 100 MG PO SCH ×2 (20:27→21:15)
[2017-12-05] MEDS: Metoprolol Tartrate TAB* 50 mg PO SCH ×3 (01:20→18:04)
[2017-12-05] MEDS: Dexamethasone IV* 4 MG/ML 1 ML (4 MG) IV SLOW PU SCH ×4 (04:15→22:38)
[2017-12-05] MEDS: Omeprazole CAP* 20 MG PO SCH (06:02)
[2017-12-05] MEDS: Mometasone/Formoter 200/5 MDI INH SCH ×2 (08:48→19:41)
[2017-12-05] MEDS: Diltiazem CD CAP* 120 MG PO SCH (09:59)
[2017-12-05] MEDS: Captopril TAB* 12.5 MG PO SCH ×3 (09:59→22:37)
[2017-12-05] MEDS: Docusate CAP* 100 MG PO SCH ×2 (10:00→22:37)
[2017-12-05] MEDS: Gabapentin CAP(*) 100 MG PO SCH ×3 (10:00→22:37)
[2017-12-05] MEDS: Enoxaparin(*) 80 MG/0.8 ML SYR SUBCUT SCH (10:01)
[2017-12-05] MEDS: Fluticasone NASAL SPRAY 50MCG* 16 gm SPRAY BTL BOTH NARES SCH (10:12)
[2017-12-05] MEDS ORDERED: Bisacodyl SUPP* 10 MG SUPP PR ONE (10:43)
[2017-12-05] MEDS ORDERED: LORazepam INJ* 2 MG/ML 1 ML VIAL IV PUSH ONE (13:12)
[2017-12-05] MEDS ORDERED: Mineral Oil ENEMA* 1 BOTTLE PR ONE (15:50)
[2017-12-05] MEDS: NS 0.9% 1000 ML* 1,000 ML IV SCH (23:50)
[2017-12-06] MEDS: LORazepam INJ* 2 MG/ML 1 ML VIAL IV PUSH PRN (04:01)
[2017-12-06] MEDS: Dexamethasone IV* 4 MG/ML 1 ML (4 MG) IV SLOW PU SCH ×4 (04:13→21:45)
[2017-12-06] MEDS: Metoprolol Tartrate TAB* 50 mg PO SCH ×4 (04:25→23:39)
[2017-12-06] MEDS: Omeprazole CAP* 20 MG PO SCH (04:51)
[2017-12-06] MEDS: Diltiazem CD CAP* 120 MG PO SCH (07:28)
[2017-12-06] MEDS: Docusate CAP* 100 MG PO SCH ×2 (07:28→21:45)
[2017-12-06] MEDS: Enoxaparin(*) 80 MG/0.8 ML SYR SUBCUT SCH (07:28)
[2017-12-06] MEDS: Gabapentin CAP(*) 100 MG PO SCH ×3 (07:28→21:45)
[2017-12-06] MEDS: Captopril TAB* 12.5 MG PO SCH ×3 (07:28→21:45)
[2017-12-06] MEDS: Fluticasone NASAL SPRAY 50MCG* 16 gm SPRAY BTL BOTH NARES SCH (07:28)
--- NOTE | 2017-12-06 07:44 | PN ---
Progress Note - Progress Note Date of Service: 12/06/17 SOAP: Subjective: feels like any time he swallows he is "water boarding" as the liquid refluxes up his nose. very weak. ate only "drips and drops" yesterday. refused his enema last night. not able to swallow any PO pills. Objective: Vital Signs Temp Pulse Resp BP Pulse Ox 97.4 F 89 20 131/80 100 12/06/17 03:44 12/06/17 03:44 12/06/17 07:13 12/06/17 03:44 12/06/17 03:44 cachectic op very dry rhonchorous breath sounds irr and tachy soft nt +bs no le edema left leg 2/5, right 3/5 A+O x 3, but very slow to answer. does answer appropriately after time Acetaminophen (Tylenol Tab*) 650 mg PO Q6H PRN PRN Reason: FEVER/PAIN Last Admin: 12/02/17 10:06 Dose: 650 mg Albuterol (Ventolin 2.5 Mg/3 Ml Neb.Dea*) 2.5 mg INH Q2H PRN PRN Reason: SOB/WHEEZING Captopril (Capoten Tab*) 12.5 mg PO TID [facility] Last Admin: 12/05/17 22:37 Dose: Not Given Device (Nicotine Mouth Piece*) 1 each INH .USE WITH NICOTROL PRN PRN Reason: CRAVING Dexamethasone Sodium Phosphate (Decadron Iv*) 8 mg IV SLOW PU Q6H [facility] Last Admin: 12/06/17 04:13 Dose: 8 mg Digoxin (Digoxin Iv*) 0.25 mg IV SLOW PU DAILY [facility] Docusate Sodium (Colace Cap*) 200 mg PO BID [facility] Last Admin: 12/05/17 22:37 Dose: Not Given Enoxaparin Sodium (Lovenox(*)) 70 mg SUBCUT Q24HR [facility] Last Admin: 12/05/17 10:01 Dose: 70 mg Fluticasone Propionate (Flonase Nasal [place] 50mcg*) 2 spray BOTH NARES DAILY [facility] Last Admin: 12/05/17 10:12 Dose: Not Given Gabapentin (Neurontin Cap(*)) 200 mg PO TID [facility] Last Admin: 12/05/17 22:37 Dose: Not Given Sodium Chloride (Ns 0.9% 1000 Ml*) 1,000 mls @ 125 mls/hr IV PER RATE [facility] Last Admin: 12/05/17 23:50 Dose: 125 mls/hr Lactulose (Lactulose*) 30 ml PO Q4H PRN PRN Reason: TILL BOWEL MOVEMENT ACHIEVED Last Admin: 12/02/17 19:28 Dose: 30 ml Lorazepam (Ativan Tab(*)) 0.5 mg PO Q4H PRN PRN Reason: ANXIETY Last Admin: 12/04/17 15:00 Dose: 0.5 mg Lorazepam (Ativan Inj*) 0.5 mg IV PUSH Q4H PRN PRN Reason: ANXIETY Last Admin: 12/06/17 04:01 Dose: 0.5 mg Melatonin (Melatonin (Nf)) 3 mg PO BEDTIME PRN; Protocol PRN Reason: Sleep Last Admin: 11/28/17 21:42 Dose: 3 mg Metoprolol Tartrate (Lopressor Tab*) 50 mg PO 0100,0900,1700 [facility] Last Admin: 12/06/17 04:25 Dose: Not Given Metoprolol Tartrate (Lopressor Iv*) 5 mg IV Q4H [facility] Mometasone Furoate/Formoterol Fumar (Dulera 200/5 Mdi*) 2 puff INH BID [facility] Last Admin: 12/05/17 19:41 Dose: Not Given Morphine Sulfate (Morphine Inj (Syringe)*) 2 mg IV Q3H PRN PRN Reason: PAIN Last Admin: 12/02/17 19:27 Dose: 2 mg Nicotine (Nicotine Inhaler*) 10 mg INH Q2H PRN PRN Reason: CRAVING Omeprazole (Prilosec Cap*) 20 mg PO DAILY@0600 [facility] Last Admin: 12/06/17 04:51 Dose: Not Given Pharmacy Profile Note (Scopolamine Patch Remove*) 1 note PATCH OFF Q72H [facility] Polyethylene Glycol/Electrolytes (Miralax*) 17 gm PO Q12H PRN PRN Reason: CONSTIPATION Last Admin: 12/04/17 09:53 Dose: 17 gm Scopolamine (Transderm-Scop 1.5 Mg Patch*) 1 patch TRANSDERM Q72H [facility] Last Admin: 12/04/17 15:08 Dose: 1 patch Senna (Senokot Tab*) 2 tab PO BID PRN PRN Reason: CONSTIPATION Last Admin: 12/04/17 20:25 Dose: 2 tab Assessment: 67 yo M w PMH of heavy tobacco use and COPD w widely metastatic small cell lung cancer with cord compression. He looks quite poor at this point and I honestly do not know that he is going to recover from this. We discussed hospice at length, however he is quite clear that he is "not ready for that scary step". He did agree to DNR, however he is clear that he wants to give chemotherapy a chance. He did agree to finishing the cycle today. Plan: Small Cell Lung cancer: -cont steroids 8 mg iv q6 hrs -cont RT to spine -day 3 carbo/etoposide today -IV antiemetics Afib: -afib still relatively poorly rate controlled but not taking POs -will start metoprolol IV standing instead of PRN -lovenox daily Swallow difficulties: puree diet DNR
[2017-12-06] MEDS: Metoprolol Tartrate IV* 1 MG/ML 5 ML VIAL IV SCH ×5 (08:21→23:37)
[2017-12-06] MEDS: NS 0.9% 1000 ML* 1,000 ML IV SCH ×2 (08:27→17:38)
[2017-12-06] MEDS: Mometasone/Formoter 200/5 MDI INH SCH ×2 (08:48→20:33)
[2017-12-06] MEDS ORDERED: Digoxin IV* 0.5 MG/2 ML AMP (0.25 MG/ML) IV SLOW PU SCH (09:00)
[2017-12-06] MEDS: NS 0.9% IVPB SCH (11:10)
[2017-12-06] MEDS: ETOPOSIDE IVPB SCH (11:10)
[2017-12-07] MEDS: NS 0.9% 1000 ML* 1,000 ML IV SCH (01:43)
[2017-12-07 04:14] VITALS: BP 108/78
[2017-12-07] MEDS: Omeprazole CAP* 20 MG PO SCH (04:16)
[2017-12-07] MEDS: Dexamethasone IV* 4 MG/ML 1 ML (4 MG) IV SLOW PU SCH ×4 (04:24→22:29)
[2017-12-07] MEDS: Metoprolol Tartrate IV* 1 MG/ML 5 ML VIAL IV SCH (04:24)
[2017-12-07 06:27] LABS: ABS Basophils 0 10^3/ul (0-0.2); ABS Eosinophils 0 10^3/ul (0-0.6); ABS Lymphocytes 0.4 10^3/ul (1.0-4.8); ABS Monocytes 0.1 10^3/ul (0-0.8); ABS Neutrophils 11.4 10^3/ul (1.5-7.7); ABS Nucleated RBC 0 10^3/ul; Eosinophil % 0 % (0-6); Hematocrit 40 % (42-52); Hemoglobin 13.6 g/dl (14.0-18.0); Lymphocyte % 3.1 % (25-47); Mean Corpuscular HGB Conc 34 g/dl (31-36); Mean Corpuscular Hemoglobin 33 pg (27-31); Mean Corpuscular Volume 97 fL (80-94); Mean Platelet Volume 10 um3 (7.4-10.4); Nucleated Red Blood Cells % 0; Platelet Count 159 10^3/ul (150-450); Red Blood Count 4.18 10^6/ul (4.0-5.4); Red Cell Distribution Width 14 % (10.5-15); White Blood Count 11.8 10^3/ul (3.5-10.8)
[2017-12-07] MEDS: Mometasone/Formoter 200/5 MDI INH SCH ×2 (07:52→20:40)
--- NOTE | 2017-12-07 08:05 | PN ---
Progress Note - Progress Note Date of Service: 12/07/17 SOAP: Subjective: very concerned about "backing up" his urine. no urine in PVR check. still no BM. Objective: Vital Signs Temp Pulse Resp BP Pulse Ox 97.4 F 75 16 108/78 96 12/07/17 03:29 12/07/17 07:34 12/07/17 07:34 12/07/17 03:29 12/07/17 07:34 perr eomi op very dry rhonchorous tachy soft nt +bs trace le edema 2/5 left 3/5 right strength A+O x 3 Assessment: 67 yo M w extensive Small cell lung CA admitted with cord compression, sp 1 cycle of chemotherapy, however with continued functional decline, not eating anything at this point 2/2 dysphagia. I had an extensive conversation with David and his family. It is hard to conceive that he will recover from this, and he does not want interventions like blood draws, vital checks, etc.. His family is very interested in hospice, which is completely appropriate. They would like to stop all radiation therapy and try to have him go to the residence if a bed is available. He is appropriately sad, but in agreement. Plan: -comfort measures only -d/c tele -d/c neuro checks -[place] for comfort -morphine IV or roxanol SL 45 mins spent with patient and family.
[2017-12-07] MEDS: Fluticasone NASAL SPRAY 50MCG* 16 gm SPRAY BTL BOTH NARES SCH (09:53)
[2017-12-07] MEDS: Bisacodyl SUPP* 10 MG SUPP PR SCH (10:09)
[2017-12-07] MEDS: LORazepam INJ* 2 MG/ML 1 ML VIAL IV PUSH PRN (10:32)
[2017-12-07] MEDS ORDERED: Metoprolol Tartrate IV* 1 MG/ML 5 ML VIAL IV SCH (12:00)
[2017-12-07] MEDS ORDERED: Scopolamine PATCH Remove* 1 NOTE MISC PATCH OFF SCH (15:00)
[2017-12-07] MEDS: Scopolamine 1.5 mg* PATCH TRANSDERM SCH (15:04)
[2017-12-07] MEDS: Haloperidol INJ IV/IM* 5 MG/ML AMP IV SLOW PU PRN ×2 (16:21→20:10)
[2017-12-08] MEDS: Haloperidol INJ IV/IM* 5 MG/ML AMP IV SLOW PU PRN ×3 (00:26→12:54)
[2017-12-08] MEDS: Dexamethasone IV* 4 MG/ML 1 ML (4 MG) IV SLOW PU SCH ×4 (04:11→21:55)
[2017-12-08] MEDS: Bisacodyl SUPP* 10 MG SUPP PR SCH ×2 (06:51→07:19)
[2017-12-08] MEDS: Fluticasone NASAL SPRAY 50MCG* 16 gm SPRAY BTL BOTH NARES SCH (07:19)
[2017-12-08] MEDS: Mometasone/Formoter 200/5 MDI INH SCH ×2 (07:51→19:49)
[2017-12-08] MEDS: Morphine ORAL CONCENTRATE* 5 MG/0.25 ML ORAL.SYRIN SL PRN ×2 (08:33→10:41)
--- NOTE | 2017-12-08 09:13 | PN ---
Progress Note - Progress Note Date of Service: 12/08/17 SOAP: Subjective: []Transitioned to comfort measures this weekend. Hopeful for d/c to hospice residence. Very restless and anxious. Worried about meds not working adequately for him. Worried about huffman not draining. Worried about BMs, though had one this AM. Medications: Acetaminophen (Tylenol Tab*) 650 mg PO Q6H PRN PRN Reason: FEVER/PAIN Last Admin: 12/02/17 10:06 Dose: 650 mg Albuterol (Ventolin 2.5 Mg/3 Ml Neb.Dea*) 2.5 mg INH Q2H PRN PRN Reason: SOB/WHEEZING Bisacodyl (Dulcolax Supp*) 10 mg HI DAILY [facility] Last Admin: 12/08/17 07:19 Dose: Not Given Device (Nicotine Mouth Piece*) 1 each INH .USE WITH NICOTROL PRN PRN Reason: CRAVING Dexamethasone Sodium Phosphate (Decadron Iv*) 8 mg IV SLOW PU Q6H [facility] Last Admin: 12/08/17 04:11 Dose: 8 mg Fluticasone Propionate (Flonase Nasal [place] 50mcg*) 2 spray BOTH NARES DAILY [facility] Last Admin: 12/08/17 07:19 Dose: Not Given Haloperidol Lactate (Haldol Inj Iv/Im*) 1 mg IV SLOW PU Q4H PRN PRN Reason: AGITATION Last Admin: 12/08/17 04:11 Dose: 1 mg Lorazepam (Ativan Tab(*)) 0.5 mg PO Q4H PRN PRN Reason: ANXIETY Last Admin: 12/04/17 15:00 Dose: 0.5 mg Lorazepam (Ativan Inj*) 0.5 mg IV PUSH Q4H PRN PRN Reason: ANXIETY Last Admin: 12/07/17 10:32 Dose: 0.5 mg Mometasone Furoate/Formoterol Fumar (Dulera 200/5 Mdi*) 2 puff INH BID [facility] Last Admin: 12/08/17 07:51 Dose: Not Given Morphine Sulfate (Morphine Inj (Syringe)*) 2 mg IV Q3H PRN PRN Reason: PAIN Last Admin: 12/02/17 19:27 Dose: 2 mg Morphine Sulfate (Morphine Oral Concentrate*) 10 mg SL Q2H PRN PRN Reason: PAIN Last Admin: 12/08/17 08:33 Dose: 10 mg Nicotine (Nicotine Inhaler*) 10 mg INH Q2H PRN PRN Reason: CRAVING Pharmacy Profile Note (Scopolamine Patch Remove*) 1 note PATCH OFF Q72H [facility] Last Admin: 12/07/17 15:02 Dose: 1 patch Scopolamine (Transderm-Scop 1.5 Mg Patch*) 1 patch TRANSDERM Q72H [facility] Last Admin: 12/07/17 15:04 Dose: 1 patch Objective: [] Vital Signs Temp Pulse Resp BP Pulse Ox 97.4 F 66 18 108/78 96 12/07/17 03:29 12/08/17 07:26 12/08/17 08:33 12/07/17 03:29 12/07/17 07:34 Alert and oriented, EOMI HRR, no murmur noted LS clear, tachypnea at times +BS, abd. soft and non-tender Laboratory Last Values WBC 11.8 10^3/ul (3.5-10.8) H 12/07/17 05:43 RBC 4.18 10^6/ul (4.0-5.4) 12/07/17 05:43 Hgb 13.6 g/dl (14.0-18.0) L 12/07/17 05:43 Hct 40 % (42-52) L 12/07/17 05:43 MCV 97 fL (80-94) H 12/07/17 05:43 MCH 33 pg (27-31) H 12/07/17 05:43 MCHC 34 g/dl (31-36) 12/07/17 05:43 RDW 14 % (10.5-15) 12/07/17 05:43 Plt Count 159 10^3/ul (150-450) 12/07/17 05:43 MPV 10 um3 (7.4-10.4) 12/07/17 05:43 Neut % (Auto) 96.3 % (38-83) H 12/07/17 05:43 Lymph % (Auto) 3.1 % (25-47) L 12/07/17 05:43 [place] % (Auto) 0.5 % (1-9) L 12/07/17 05:43 Eos % (Auto) 0 % (0-6) 12/07/17 05:43 Baso % (Auto) 0.1 % (0-2) 12/07/17 05:43 Absolute Neuts (auto) 11.4 10^3/ul (1.5-7.7) H 12/07/17 05:43 Absolute Lymphs (auto) 0.4 10^3/ul (1.0-4.8) L 12/07/17 05:43 Absolute Monos (auto) 0.1 10^3/ul (0-0.8) 12/07/17 05:43 Absolute Eos (auto) 0 10^3/ul (0-0.6) 12/07/17 05:43 Absolute Basos (auto) 0 10^3/ul (0-0.2) 12/07/17 05:43 Absolute Nucleated RBC 0 10^3/ul 12/07/17 05:43 Nucleated RBC % 0 12/07/17 05:43 ESR 7 mm/Hr (0-40) 11/24/17 16:42 INR (Anticoag Therapy) 1.03 (0.77-1.02) H 11/24/17 16:42 APTT 29.9 seconds (26.0-36.3) 11/24/17 16:42 Sodium 134 mmol/L (133-145) 12/07/17 05:44 Potassium 4.0 mmol/L (3.5-5.0) 12/07/17 05:44 Chloride 104 mmol/L (101-111) 12/07/17 05:44 Carbon Dioxide 27 mmol/L (22-32) 12/07/17 05:44 Anion Gap 3 mmol/L (2-11) 12/07/17 05:44 BUN 39 mg/dL (6-24) H 12/07/17 05:44 Creatinine 0.63 mg/dL (0.67-1.17) L 12/07/17 05:44 Est GFR ( Amer) 163.4 (>60) 12/07/17 05:44 Est GFR (Non-Af Amer) 127.0 (>60) 12/07/17 05:44 BUN/Creatinine Ratio 61.9 (8-20) H 12/07/17 05:44 Glucose 80 mg/dL (70-100) 12/07/17 05:44 Lactic Acid 2.0 mmol/L (0.5-2.0) 11/24/17 16:42 Calcium 8.2 mg/dL (8.6-10.3) L 12/07/17 05:44 Magnesium 2.2 mg/dL (1.9-2.7) 12/07/17 05:44 Total Bilirubin 1.50 mg/dL (0.2-1.0) H 12/07/17 05:44 AST 31 U/L (13-39) 12/07/17 05:44 ALT 30 U/L (7-52) 12/07/17 05:44 Alkaline Phosphatase 55 U/L (34-104) 12/07/17 05:44 Troponin I 0.03 ng/mL (<0.04) 11/27/17 05:00 C-Reactive Protein 4.64 mg/L (< 5.00) 11/25/17 04:00 B-Natriuretic Peptide 525 pg/mL (-100) H 11/24/17 16:42 Total Protein 5.0 g/dL (6.4-8.9) L 12/07/17 05:44 Total Protein (PEP) 6.5 g/dL (6.3 - 7.9) 11/24/17 19:40 Albumin 3.0 g/dL (3.2-5.2) L 12/07/17 05:44 Albumin (PEP) 3.3 g/dL (3.4-4.7) L 11/24/17 19:40 Globulin 2.0 g/dL (2-4) 12/07/17 05:44 Albumin/Globulin Ratio 1.5 (1-3) 12/07/17 05:44 Albumin/Globulin (PEP) 1.05 11/24/17 19:40 Ylxrw-6-Aatlkbwiy 0.3 g/dL (0.1-0.3) 11/24/17 19:40 Agjwi-7-Jwivnukpj 1.0 g/dL (0.6-1.0) 11/24/17 19:40 Nuck-0-Lxrldsbb 0.9 g/dL (0.7-1.2) 11/24/17 19:40 Gamma Globulins 0.9 g/dL (0.6-1.6) 11/24/17 19:40 PEP Impression See comment 11/24/17 19:40 Carcinoembryonic Ag 22.5 ng/mL (0.1-5.0) H 11/24/17 19:40 Whole Bld Vitamin B1 153 nmol/L (70-180) 11/24/17 19:40 Vitamin B12 382 pg/mL (180-914) 11/24/17 16:42 Vit D 1,25-Dihydroxy 34 pg/mL (18-64) 11/24/17 19:40 Procalcitonin 0.1 ng/mL (<0.6) 11/24/17 16:42 TSH 1.92 mcIU/mL (0.34-5.60) 11/24/17 16:42 Urine Color Yellow 11/25/17 05:34 Urine Appearance Clear 11/25/17 05:34 Urine pH 7.0 (5-9) 11/25/17 05:34 Ur Specific [place] 1.014 (1.010-1.030) 11/25/17 05:34 Urine Protein Negative (Negative) 11/25/17 05:34 Urine Ketones Trace (Negative) H 11/25/17 05:34 Urine Blood Negative (Negative) 11/25/17 05:34 Urine Nitrate Negative (Negative) 11/25/17 05:34 Urine Bilirubin Negative (Negative) 11/25/17 05:34 Urine Urobilinogen Negative (Negative) 11/25/17 05:34 Ur Leukocyte Esterase Negative (Negative) 11/25/17 05:34 Urine Glucose Negative (Negative) 11/25/17 05:34 Digoxin 1.1 ng/ml (0.8-2.0) 12/02/17 04:46 Lyme Disease Serology Negative (Negative) 11/24/17 19:40 Flow Intrp 2-8 Markers TNP 11/28/17 10:23 Flow Intrp 9-15 Marker 11/28/17 10:23 Flow Intrp 16+ Markers TNP 11/28/17 10:23 Assessment: []67 yo male with advanced small cell lung cancer who decided to transition to comfort measures this weekend (s/p C1 Carbo/Etoposide, D6 today). His biggest concern is restlessness and anxiety of which Haldol appears to work best, though he has been hesitant to try morphine due to episode of dizziness. Plan: []1. No change in meds, education for use provided 2. Supportive calming environment - CARE program, soft lighting, etc. 3. Cont. Huffman, PRN laxatives Goal of d/c to hospice [facility]
--- NOTE | 2017-12-08 12:52 | CONSULT ---
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 He also has new onset AFib. He has had a 30 pound weight loss in the last month. He has elected comfort measures over the weekend and modified his MOLST form to reflect these wishes. He was a heavy smoker and has undergone nicotine withdrawal over this hospitalization,. He is currently dealing with a lot of anxiety and restlessness , as well as anger and concern about his financial status. Lab Values: Laboratory Last Values WBC 11.8 10^3/ul (3.5-10.8) H 12/07/17 05:43 RBC 4.18 10^6/ul (4.0-5.4) 12/07/17 05:43 Hgb 13.6 g/dl (14.0-18.0) L 12/07/17 05:43 Hct 40 % (42-52) L 12/07/17 05:43 MCV 97 fL (80-94) H 12/07/17 05:43 MCH 33 pg (27-31) H 12/07/17 05:43 MCHC 34 g/dl (31-36) 12/07/17 05:43 RDW 14 % (10.5-15) 12/07/17 05:43 Plt Count 159 10^3/ul (150-450) 12/07/17 05:43 MPV 10 um3 (7.4-10.4) 12/07/17 05:43 Neut % (Auto) 96.3 % (38-83) H 12/07/17 05:43 Lymph % (Auto) 3.1 % (25-47) L 12/07/17 05:43 [place] % (Auto) 0.5 % (1-9) L 12/07/17 05:43 Eos % (Auto) 0 % (0-6) 12/07/17 05:43 Baso % (Auto) 0.1 % (0-2) 12/07/17 05:43 Absolute Neuts (auto) 11.4 10^3/ul (1.5-7.7) H 12/07/17 05:43 Absolute Lymphs (auto) 0.4 10^3/ul (1.0-4.8) L 12/07/17 05:43 Absolute Monos (auto) 0.1 10^3/ul (0-0.8) 12/07/17 05:43 Absolute Eos (auto) 0 10^3/ul (0-0.6) 12/07/17 05:43 Absolute Basos (auto) 0 10^3/ul (0-0.2) 12/07/17 05:43 Absolute Nucleated RBC 0 10^3/ul 12/07/17 05:43 Nucleated RBC % 0 12/07/17 05:43 ESR 7 mm/Hr (0-40) 11/24/17 16:42 INR (Anticoag Therapy) 1.03 (0.77-1.02) H 11/24/17 16:42 APTT 29.9 seconds (26.0-36.3) 11/24/17 16:42 Sodium 134 mmol/L (133-145) 12/07/17 05:44 Potassium 4.0 mmol/L (3.5-5.0) 12/07/17 05:44 Chloride 104 mmol/L (101-111) 12/07/17 05:44 Carbon Dioxide 27 mmol/L (22-32) 12/07/17 05:44 Anion Gap 3 mmol/L (2-11) 12/07/17 05:44 BUN 39 mg/dL (6-24) H 12/07/17 05:44 Creatinine 0.63 mg/dL (0.67-1.17) L 12/07/17 05:44 Est GFR ( Amer) 163.4 (>60) 12/07/17 05:44 Est GFR (Non-Af Amer) 127.0 (>60) 12/07/17 05:44 BUN/Creatinine Ratio 61.9 (8-20) H 12/07/17 05:44 Glucose 80 mg/dL (70-100) 12/07/17 05:44 Lactic Acid 2.0 mmol/L (0.5-2.0) 11/24/17 16:42 Calcium 8.2 mg/dL (8.6-10.3) L 12/07/17 05:44 Magnesium 2.2 mg/dL (1.9-2.7) 12/07/17 05:44 Total Bilirubin 1.50 mg/dL (0.2-1.0) H 12/07/17 05:44 AST 31 U/L (13-39) 12/07/17 05:44 ALT 30 U/L (7-52) 12/07/17 05:44 Alkaline Phosphatase 55 U/L (34-104) 12/07/17 05:44 Troponin I 0.03 ng/mL (<0.04) 11/27/17 05:00 C-Reactive Protein 4.64 mg/L (< 5.00) 11/25/17 04:00 B-Natriuretic Peptide 525 pg/mL (-100) H 11/24/17 16:42 Total Protein 5.0 g/dL (6.4-8.9) L 12/07/17 05:44 Total Protein (PEP) 6.5 g/dL (6.3 - 7.9) 11/24/17 19:40 Albumin 3.0 g/dL (3.2-5.2) L 12/07/17 05:44 Albumin (PEP) 3.3 g/dL (3.4-4.7) L 11/24/17 19:40 Globulin 2.0 g/dL (2-4) 12/07/17 05:44 Albumin/Globulin Ratio 1.5 (1-3) 12/07/17 05:44 Albumin/Globulin (PEP) 1.05 11/24/17 19:40 Bythy-6-Vimzcuuby 0.3 g/dL (0.1-0.3) 11/24/17 19:40 Whvqu-9-Lcnynpxrl 1.0 g/dL (0.6-1.0) 11/24/17 19:40 Hgob-8-[place]uy[place]uu 0.9 g/dL (0.7-1.2) 11/24/17 19:40 Gamma Globulins 0.9 g/dL (0.6-1.6) 11/24/17 19:40 PEP Impression See comment 11/24/17 19:40 Carcinoembryonic Ag 22.5 ng/mL (0.1-5.0) H 11/24/17 19:40 Whole Bld Vitamin B1 153 nmol/L (70-180) 11/24/17 19:40 Vitamin B12 382 pg/mL (180-914) 11/24/17 16:42 Vit D 1,25-Dihydroxy 34 pg/mL (18-64) 11/24/17 19:40 Procalcitonin 0.1 ng/mL (<0.6) 11/24/17 16:42 TSH 1.92 mcIU/mL (0.34-5.60) 11/24/17 16:42 Urine Color Yellow 11/25/17 05:34 Urine Appearance Clear 11/25/17 05:34 Urine pH 7.0 (5-9) 11/25/17 05:34 Ur Specific [place] 1.014 (1.010-1.030) 11/25/17 05:34 Urine Protein Negative (Negative) 11/25/17 05:34 Urine Ketones Trace (Negative) H 11/25/17 05:34 Urine Blood Negative (Negative) 11/25/17 05:34 Urine Nitrate Negative (Negative) 11/25/17 05:34 Urine Bilirubin Negative (Negative) 11/25/17 05:34 Urine Urobilinogen Negative (Negative) 11/25/17 05:34 Ur Leukocyte Esterase Negative (Negative) 11/25/17 05:34 Urine Glucose Negative (Negative) 11/25/17 05:34 Digoxin 1.1 ng/ml (0.8-2.0) 12/02/17 04:46 Lyme Disease Serology Negative (Negative) 11/24/17 19:40 Flow Intrp 2-8 Markers TNP 11/28/17 10:23 Flow Intrp 9-15 Marker 11/28/17 10:23 Flow Intrp 16+ Markers TNP 11/28/17 10:23 - Objective Active Medications: Acetaminophen (Tylenol Tab*) 650 mg PO Q6H PRN PRN Reason: FEVER/PAIN Last Admin: 12/02/17 10:06 Dose: 650 mg Albuterol (Ventolin 2.5 Mg/3 Ml Neb.Dea*) 2.5 mg INH Q2H PRN PRN Reason: SOB/WHEEZING Bisacodyl (Dulcolax Supp*) 10 mg UT DAILY [facility] Last Admin: 12/08/17 07:19 Dose: Not Given Device (Nicotine Mouth Piece*) 1 each INH .USE WITH NICOTROL PRN PRN Reason: CRAVING Dexamethasone Sodium Phosphate (Decadron Iv*) 8 mg IV SLOW PU Q6H [facility] Last Admin: 12/08/17 10:12 Dose: 8 mg Fluticasone Propionate (Flonase Nasal [place] 50mcg*) 2 spray BOTH NARES DAILY [facility] Last Admin: 12/08/17 07:19 Dose: Not Given Haloperidol Lactate (Haldol Inj Iv/Im*) 1 mg IV SLOW PU Q4H PRN PRN Reason: AGITATION Last Admin: 12/08/17 04:11 Dose: 1 mg Lorazepam (Ativan Tab(*)) 0.5 mg PO Q4H PRN PRN Reason: ANXIETY Last Admin: 12/04/17 15:00 Dose: 0.5 mg Lorazepam (Ativan Inj*) 0.5 mg IV PUSH Q4H PRN PRN Reason: ANXIETY Last Admin: 12/07/17 10:32 Dose: 0.5 mg Mometasone Furoate/Formoterol Fumar (Dulera 200/5 Mdi*) 2 puff INH BID [facility] Last Admin: 12/08/17 07:51 Dose: Not Given Morphine Sulfate (Morphine Inj (Syringe)*) 2 mg IV Q3H PRN PRN Reason: PAIN Last Admin: 12/02/17 19:27 Dose: 2 mg Morphine Sulfate (Morphine Oral Concentrate*) 10 mg SL Q2H PRN PRN Reason: PAIN Last Admin: 12/08/17 10:41 Dose: 10 mg Nicotine (Nicotine Inhaler*) 10 mg INH Q2H PRN PRN Reason: CRAVING Pharmacy Profile Note (Scopolamine Patch Remove*) 1 note PATCH OFF Q72H [facility] Last Admin: 12/07/17 15:02 Dose: 1 patch Scopolamine (Transderm-Scop 1.5 Mg Patch*) 1 patch TRANSDERM Q72H [facility] Last Admin: 12/07/17 15:04 Dose: 1 patch Vital Signs: Vital Signs: Temp Pulse Resp BP Pulse Ox 97.4 F 66 18 108/78 96 12/07/17 03:29 12/08/17 07:26 01/22/18 11:36 12/07/17 03:29 12/07/17 07:34 Patient Weight: Weight 115 lb 6.4 oz Intake and Output: Intake & Output 12/06/17 12/07/17 12/08/17 12/09/17 06:59 06:59 06:59 06:59 Intake Total 5 2666 807 Output Total 666 928 0491 Balance -220 2266 -418 Weight 115 lb 6.4 oz 115 lb 6.4 oz Intake: IV Fluids 2016 667 NS (0.9%) 2016 667 IVPB 550 etoposide 550 Oral 5 100 140 Output: Urine 225 400 [place] 1225 Other: Estimated Void Small Large # Bowel Movements 0 0 # Voids 1 ADLs: Meal Record Start: 11/25/17 00: 07 Freq: DAILY@0900,1400,1800 Status: Inactive Protocol: Document 11/25/17 09:00 [id number] (Rec: 11/25/17 12:30 [id number] TELE-C01) Document 11/25/17 15:19 CES9564 (Rec: 11/25/17 15:19 [id number] [facility]-M21) Document 11/25/17 18:00 RTA5997 (Rec: 11/25/17 19:43 HIF6732 TELE-C11) Document 11/26/17 09:00 BTK1145 (Rec: 11/26/17 10:01 NOA7386 TELE-C01) ADLs: Meal Record Start: 11/26/17 14: 07 Freq: 09,13,18 Status: Complete Protocol: Created 11/26/17 14:07 [id number] (Rec: 11/26/17 14:07 TOC2351 ICU-M12) Document 11/26/17 18:00 YII6516 (Rec: 11/26/17 18:47 VUZ1064 ICU-C06) Document 11/27/17 09:00 ZMM2801 (Rec: 11/27/17 13:14 RGQ2905 [facility]-M05 ) Document 11/27/17 18:42 TST8860 (Rec: 11/27/17 18:42 EYF6627 ICU-C18) Document 11/28/17 13:00 YKK2657 (Rec: 11/28/17 15:29 QFM6896 ICU-C07) Document 11/29/17 09:00 WTT7674 (Rec: 11/29/17 13:15 VYW8377 ICU-C07) Document 11/29/17 13:00 UWP9659 (Rec: 11/29/17 15:27 ICU-C07) Document 11/29/17 18:00 OUW6677 (Rec: 11/29/17 18:22 XBP2807 ICU-C07) Document 11/30/17 09:44 UVP9034 (Rec: 11/30/17 09:44 XWT6024 ICU-C14) Document 11/30/17 13:00 SMG6933 (Rec: 11/30/17 14:37 ERB1622 ICU-C07) ADLs: Meal Record Start: 11/30/17 23: 43 Freq: ,,18 Status: Active Protocol: Document 11/30/17 23:43 OVR4761 (Rec: 11/30/17 23:45 JUO5566 TELE-C09) Created 11/30/17 23:43 CJU2502 (Rec: 11/30/17 23:43 QPD9622 TELE-C09) Document 12/02/17 21:06 SAT7304 (Rec: 12/02/17 21:07 AQE7886 TELE-C13) Document 12/02/17 21:52 FUO2165 (Rec: 12/02/17 21:52 ZIF9897 TELE-C13) Document 12/03/17 09:07 KEK3041 (Rec: 12/03/17 09:07 LOL1505 TELE-C01) Document 12/03/17 13:14 LFB3453 (Rec: 12/03/17 13:14 JKM6717 TELE-C01) Document 12/05/17 15:10 ROZ6168 (Rec: 12/05/17 15:12 RSB0690 TELE-C01) Document 12/05/17 22:00 VLD9742 (Rec: 12/05/17 22:46 ZHS7045 MED-C09) Document 12/06/17 13:25 ITW5151 (Rec: 12/06/17 13:26 CDP7225 MED-C11) Document 12/07/17 09:00 DVE9192 (Rec: 12/07/17 12:19 MXM3393 MED-C11) Document 12/07/17 10:00 UHN5197 (Rec: 12/07/17 15:23 QAE3043 MED-C07) Document 12/07/17 18:00 KXC4900 (Rec: 12/07/17 18:42 FSM2039 MED-C11) Document 12/08/17 09:00 XQG2130 (Rec: 12/08/17 09:21 XHV4477 MED-C09) Intake and Output Start: 11/25/17 00: 07 Freq: DAILY@0600,1400,2200 Status: Active Protocol: Document 11/25/17 06:00 ZLZ3712 (Rec: 11/25/17 06:24 AOE9114 TELE-C34) Document 11/25/17 14:00 HZU4373 (Rec: 11/25/17 14:04 MRT1098 TELE-C01) Document 11/25/17 19:43 BML8147 (Rec: 11/25/17 19:44 AVO0136 TELE-C11) Document 11/25/17 22:00 LRT1499 (Rec: 11/25/17 22:21 CUN7194 TELE-C07) Document 11/26/17 06:00 FXE4386 (Rec: 11/26/17 06:40 AYR0535 TELE-C05) Document 11/26/17 11:50 XQB9852 (Rec: 11/26/17 11:50 ECS7378 ICU-C18) Document 11/26/17 14:09 HXL4227 (Rec: 11/26/17 14:10 MLB6804 ICU-C20) Document 11/26/17 22:00 RGS7163 (Rec: 11/26/17 23:09 HSO9507 ICU-C07) Document 11/27/17 04:06 ZBR8792 (Rec: 11/27/17 04:06 WWL5629 ICU-C15) Document 11/27/17 05:44 SYT1530 (Rec: 11/27/17 05:44 CHA1103 ICU-C07) Document 11/27/17 13:15 NHO0989 (Rec: 11/27/17 13:15 NGN1734 [facility] ) Document 11/27/17 14:00 FMQ8722 (Rec: 11/27/17 18:48 PQL6156 ICU-C08) Document 11/27/17 22:00 HPR3019 (Rec: 11/27/17 23:36 HRI9410 ICU-C07) Document 11/28/17 06:00 EJT7138 (Rec: 11/28/17 07:52 NPG6756 ICU-C08) Document 11/28/17 08:45 IJX6071 (Rec: 11/28/17 08:45 JUI4813 ICU-C07) Document 11/28/17 10:30 NWF9912 (Rec: 11/28/17 10:31 USW6501 ICU-M26) Document 11/28/17 14:30 AMO0453 (Rec: 11/28/17 14:30 WTK6767 IS[facility]-M05 ) Document 11/28/17 18:19 JKY1759 (Rec: 11/28/17 18:19 YYQ3858 ICU-C07) Document 11/28/17 22:00 QPC6994 (Rec: 11/28/17 22:20 CZB9030 ICU-C07) Document 11/29/17 06:00 EDC5799 (Rec: 11/29/17 06:06 HVT8608 ICU-C07) Document 11/29/17 10:25 OBN3864 (Rec: 11/29/17 10:25 WWK5797 ICU-C07) Document 11/29/17 14:29 EOH2736 (Rec: 11/29/17 14:29 RRI3667 IS[facility]-M05 ) Document 11/29/17 18:02 VID2031 (Rec: 11/29/17 18:02 GCN9170 ICU-C07) Document 11/29/17 22:00 JTL9247 (Rec: 11/29/17 22:23 CCR3621 ICU-C07) Document 11/30/17 06:00 FPQ6754 (Rec: 11/30/17 06:16 QBH5213 ICU-C07) Document 11/30/17 14:00 IBD7232 (Rec: 11/30/17 14:37 EKV9166 ICU-C07) Document 11/30/17 22:00 KMS9710 (Rec: 11/30/17 23:42 LRZ6515 TELE-C09) Document 12/01/17 02:02 TXV6781 (Rec: 12/01/17 02:03 [facility] [place]-[facility]) Document 12/01/17 06:00 KID5873 (Rec: 12/01/17 06:49 NCL1001 [id number]) Document 12/01/17 14:00 TPF7359 (Rec: 12/01/17 14:36 BNB6660 TELE-C01) Document 12/01/17 21:50 SID9914 (Rec: 12/01/17 21:50 BUZ1381 TELE-C01) Document 12/02/17 06:00 EDP1864 (Rec: 12/02/17 06:21 LRG8956 TELE-C33) Document 12/02/17 14:00 XJC4557 (Rec: 12/02/17 14:07 RAA0677 TELE-C01) Document 12/02/17 19:45 FJT1486 (Rec: 12/03/17 03:54 EZY0849 TELE-C06) Document 12/02/17 21:07 ZRP8220 (Rec: 12/02/17 21:07 [id number] TELE-C13) Document 12/03/17 03:54 [id number] (Rec: 12/03/17 03:54 [id number] TELE-C06) Document 12/03/17 05:30 [id number] (Rec: 12/03/17 05:30 [id number] TELE-C32) Document 12/03/17 06:05 [id number] (Rec: 12/03/17 06:05 [id number] TELE-C32) Document 12/03/17 13:14 [id number] (Rec: 12/03/17 13:14 [id number] TELE-C01) Document 12/03/17 21:47 [id number] (Rec: 12/03/17 21:47 [id number] TELE-C01) Document 12/04/17 05:35 [id number] (Rec: 12/04/17 05:35 [id number] TELE-C32) Document 12/04/17 14:00 [id number] (Rec: 12/04/17 14:48 [id number] TELE-C01) Document 12/04/17 22:00 [id number] (Rec: 12/04/17 22:50 [id number] TELE-C03) Document 12/05/17 06:00 OSH1035 (Rec: 12/05/17 06:25 [id number] TELE-C03) Document 12/05/17 14:00 [id number] (Rec: 12/05/17 14:16 [id number] TELE-C10) Document 12/05/17 22:00 [id number] (Rec: 12/05/17 22:46 ITV2114 MED-C09) Document 12/06/17 06:00 [id number] (Rec: 12/06/17 06:56 [id number] MED-C42) Document 12/06/17 14:00 TLC2358 (Rec: 12/06/17 14:48 [id number] MED-C11) Document 12/06/17 22:00 [id number] (Rec: 12/06/17 22:22 [id number] MED-C11) Document 12/07/17 02:25 [id number] (Rec: 12/07/17 02:25 [id number] MED-C26) Document 12/07/17 04:46 [id number] (Rec: 12/07/17 04:46 [id number] MED-C26) Document 12/07/17 22:00 [id number] (Rec: 12/07/17 22:24 [id number] MED-C11) Document 12/08/17 04:15 [id number] (Rec: 12/08/17 04:15 [id number] MED-C26) Intake and Output Start: 11/26/17 14: 07 Freq: 06,14,22 Status: Complete Protocol: Created 11/26/17 14:07 [id number] (Rec: 11/26/17 14:07 [id number] ICU-M12) General Impression: Cachectic, pale, anxious man lying in bed, with temporal and proximal muscle wasting, able to converse appropriately. Head: Symmetrical Eyes: No Scleral Icterus, PERRLA Ears/Nose/Mouth/Throat: NL Teeth, Lips, Gums, Mucous Membranes Moist Neck: NL Appearance and Movements; NL JVP, Trachea Midline Cardiovascular: - - irregular, tachy Respiratory: Symmetrical Chest Expansion and Respiratory Effort Abdominal: NL Sounds; No Tenderness; No Distention, No Hepatosplenomegaly, - - subcu nodules palpable in mid abdomen and left flank Extremities: No Edema, No Clubbing, Cyanosis Neurological: Alert and Oriented x 3, - - b/l distal LE's spastic, with decreased motor strength and Babinski + b/l - Assessment Assessment: 67 year old man referred by oncology for advanced small cell ca of lung not appropriate for further aggressive efforts for life prolongation, appropriate for hospice care on the basis of a primary diagnosis of lung cancer and secondary of spinal cord compression, comorbid cachexia. He wants to go to the [facility] residence and we will try to arrange this for today or tomorrow. - Plan Consult Plan (MU): Hospice - Time On Unit Date of Evaluation: 12/08/17 Hospice Consult Time in: 12:20 Hospice Consult Time Out: 13:00 Hospice Consult Time Total: 40 > 50% of Time Spend In Counseling or Coordinating Care: Yes
[2017-12-09] MEDS: Haloperidol INJ IV/IM* 5 MG/ML AMP IV SLOW PU PRN (03:24)
[2017-12-09] MEDS: Dexamethasone IV* 4 MG/ML 1 ML (4 MG) IV SLOW PU SCH ×2 (05:05→09:53)
[2017-12-09] MEDS: Mometasone/Formoter 200/5 MDI INH SCH (08:14)
[2017-12-09] MEDS: Fluticasone NASAL SPRAY 50MCG* 16 gm SPRAY BTL BOTH NARES SCH (09:53)
[2017-12-09] MEDS: Bisacodyl SUPP* 10 MG SUPP PR SCH (09:53)
[2017-12-09] MEDS: Morphine ORAL CONCENTRATE* 5 MG/0.25 ML ORAL.SYRIN SL PRN (12:36)
== END 2017-12-09 12:40 | disposition hospice, inpatient (51) | DRG 987 ==
LOC: ED 13:27 → MED 23:12 → MEDTELE 11-25 02:37 → ICU 11-26 09:54 → MEDTELE 11-30 19:45 → MED 12-05 18:09
PROVIDERS: ADMIT Hospitalist; ATTEND Internal Medicine Hematology & Oncology
PROC: 0WBF3ZX Excision of Abdominal Wall, Percutaneous Approach, Diagnostic (ICD-10-PCS; 2017-11-28)
PROC: D0Y67ZZ Contact Radiation of Spinal Cord (ICD-10-PCS; principal; 2017-11-29)
PROC: 3E0R305 Introduction of Other Antineoplastic into Spinal Canal, Percutaneous Approach (ICD-10-PCS; 2017-12-07)
DX: C79.51 Secondary malignant neoplasm of bone (principal); J18.0 Bronchopneumonia, unspecified organism; C78.7 Secondary malignant neoplasm of liver and intrahepatic bile duct; A69.20 Lyme disease, unspecified; I48.91 Unspecified atrial fibrillation; R64 Cachexia; G95.20 Unspecified cord compression; C34.92 Malignant neoplasm of unspecified part of left bronchus or lung; I48.92 Unspecified atrial flutter; Z68.1 Body mass index [BMI] 19.9 or less, adult; I50.9 Heart failure, unspecified; J43.9 Emphysema, unspecified; K57.90 Diverticulosis of intestine, part unspecified, without perforation or abscess without bleeding; F12.90 Cannabis use, unspecified, uncomplicated; I71.4 Abdominal aortic aneurysm, without rupture; K59.00 Constipation, unspecified; F41.9 Anxiety disorder, unspecified; R13.10 Dysphagia, unspecified; Z82.49 Family history of ischemic heart disease and other diseases of the circulatory system; Z80.1 Family history of malignant neoplasm of trachea, bronchus and lung; Z82.3 Family history of stroke; Z87.891 Personal history of nicotine dependence
CPT/HCPCS: 36415; 70450; 70460; 71045; 71260; 72125; 72129; 72132; 74177; 77014; 77280; 77307; 77331; 77334; 77336; 77387; 77412; 80048; 80053; 80162; 81003; 82378; 82607; 82652; 83605; 83735; 83880; 84145; 84155; 84165; 84425; 84443; 84484; 85025; 85027; 85610; 85652; 85730; 86140; 86618; 87040; 87641; 88172; 88173; 88184; 88188; 88305; 88341; 88342; 93005; 93306; 94640; 94760; 99223; 99231; 99232; 99233; 99239; 99283; 99406; A9270-GY; J1100; J1160; J1630; J1644; J1650; J2060; J2250; J2270; J2405; J2543; J3411; J3420; J3490; J9045; J9181; Q9967